=== PATIENT | female | born 1940 | race Caucasian/White ===

== ENCOUNTER 2022-12-19 12:04 | Inpatient (IN) | payer MEDICARE, SELFPAY ==
[2022-12-19] VITALS (39 sets, daily range): BP systolic 70–177; BP diastolic 46–124; PULSE 89–123; RESP 16–24; TEMP 36.2–37.1; O2SAT 55–99
--- NOTE | ~2022-12-19 | XR_ITS ---
Portable chest x-ray Comparison: 12/21/2022 Clinical History: Hypoxia Findings: Small bilateral pleural effusions are present. There is probable mild pulmonary edema josette juliana. Questionable underlying COPD or other chronic interstitial disease. Right IJ line is unchanged. Cardiomediastinal silhouette is stable. Bones and soft tissues are unremarkable. Impression: Mild pulmonary edema with small bilateral pleural effusions. Possible underlying COPD or other chronic interstitial disease. Support line, unchanged. Reviewed, dictated and finalized at location M. Impression: Mild pulmonary edema with small bilateral pleural effusions. Possible underlying COPD or other chronic interstitial disease. Support line, unchanged.
--- NOTE | ~2022-12-19 | US_ITS ---
EXAMINATION:US venous doppler LE BI INDICATION:Elevated d-dimer. TECHNIQUE: Multiple grayscale, color flow and Doppler images of the right and left lower extremity de ep venous systems were obtained and reviewed. COMPARISON:No prior studies for comparison. FINDINGS: The common femoral, superficial femoral and popliteal veins demonstrate normal respiratory variation, augmentation and compressibility. Color flow is also seen within the posterior tibial, pe roneal, greater saphenous and profunda veins. IMPRESSION: 1: No lower extremity deep venous thrombosis. Reviewed, dictated and finalized at location A.
--- NOTE | ~2022-12-19 | US_ITS ---
US renal BI 12/20/2022 09:39 Procedure: Realtime transabdominal ultrasound of the kidneys and bladder. Indication: Acute on chronic kidney disease Comparison: No prior studies for comparison. Findings: Renal echotexture is normal bilaterally without hydronephrosis, contour deforming mass or r enal calculus. The right kidney measures 9.9 cm and left kidney measures 9.3 cm. Bladder is empty li miting evaluation. Impression: 1: Unremarkable renal ultrasound. No stones, masses or hydronephrosis. Reviewed, dictated and finalized at location A. Impression: 1: Unremarkable renal ultrasound. No stones, masses or hydronephrosis.
--- NOTE | ~2022-12-19 | XR_ITS ---
Portable chest x-ray Comparison: 12/22/2022 Clinical History: Hypoxia Findings: Small right pleural effusion is present. There is mild bibasilar pulmonary edema pattern. Possible underlying COPD. Cardiomediastinal silhouette is stable. Bones and soft tissues are unremar kable. Impression: Small right pleural effusion with bibasilar pulmonary edema. Possible underlying COPD. Reviewed, dictated and finalized at location . Impression: Small right pleural effusion with bibasilar pulmonary edema. Possible underlying COPD.
--- NOTE | ~2022-12-19 | XR_ITS ---
Portable chest x-ray Comparison: 12/23/2022 Clinical History: Hypoxia Findings: Right IJ line is unchanged. Probable COPD pattern of the lungs. No definite pleural effusi on. Cardiomediastinal silhouette is stable. Bones and soft tissues are unremarkable. Impression: COPD. Correlate for mild interstitial pulmonary edema. Support line, as above. Reviewed, dictated and finalized at location . Impression: COPD. Correlate for mild interstitial pulmonary edema. Support line, as above.
--- NOTE | ~2022-12-19 | CT_ITS ---
EXAMINATION: CT brain wo con DATE: 12/19/2022 20:53 INDICATION: fall . TECHNIQUE: Computed tomography (CT) of the head was performed without intravenous contrast. The mA wa s adjusted according to patient size. Iterative reconstruction technique was employed. The dose-lengt h product was 605.33 mGy-cm. COMPARISON: None. FINDINGS: No acute intracranial hemorrhage or extra-axial fluid collection. No hydrocephalus, mass, or herniation. No acute ischemic infarct. Unremarkable dural venous sinus attenuation. No acute osseous abnormality. The aerated spaces are clear. Moderate atrophy and moderate chronic white matter change. Atherosclerotic intracranial calcification . Old bilateral basal ganglia and insular lacunar infarcts. Bilateral lens replacements. IMPRESSION: No acute intracranial process. Reviewed, dictated and finalized at location K.
--- NOTE | ~2022-12-19 | US_ITS ---
EXAMINATION: US perc cholecystostomy w imag DATE: 12/21/2022 12:19 INDICATION: Acute cholecystitis. TECHNIQUE: The procedure including the risks, benefits, and alternatives was discussed with the patie nt. Risks discussed included bleeding including bleeding and infection. Oral and written consent were obtained. A timeout was performed to verify the patient's name, date of , and procedure to b e performed. The skin overlying the gallbladder was prepped and draped in usual sterile fashion. Ane sthetic was administered with 1% lidocaine subcutaneously. An 8.5 Fr catheter was inserted into the gallbladder by trocar technique. The metal stiffener and trocar needle were removed, and the pigtail tip was locked. Bile was aspirated and sent for culture. The catheter was stitched to the skin with s melyssa. There were no immediate complications. FINDINGS: Ultrasound images demonstrate the catheter within the gallbladder. 8 mL bile was aspirated. IMPRESSION: 1. Successful ultrasound-guided cholecystostomy tube placement. 2. 8 mL black-brown bile was sent for aerobic and anaerobic cultures. 3. The catheter will be managed by Dr. Cat. A catheter cholangiogram may be performed not less than 48 hours after tube placement if clinically indicated to assess cystic duct patency. If cholecystect consuelo is not eventually performed and the infectious episode has resolved, the tube may be removed over a guidewire, preferably not less than 3 weeks after placement to allow time for a mature catheter tr act to form to prevent bile leakage and peritonitis. Reviewed, dictated and finalized at location A. IMPRESSION: 1. Successful ultrasound-guided cholecystostomy tube placement. 2. 8 mL black-brown bile was sent for aerobic and anaerobic cultures. 3. The catheter will be managed by Dr. Cat. A catheter cholangiogram may be p erformed not less than 48 hours after tube placement if clinically indicated to assess cystic duct patency. If cholecystectomy is not eventually performed and the infectious episode has resolved, the tube may be removed over a guidewire, preferably not less than 3 weeks after placement to allow time for a mature ca theter tract to form to prevent bile leakage and peritonitis.
--- NOTE | ~2022-12-19 | CT_ITS ---
EXAMINATION: CT cervical spine wo con DATE: 12/19/2022 20:53 INDICATION: Fall TECHNIQUE: Computed tomography (CT) of the cervical spine was performed without intravenous contrast. Automated exposure control and iterative reconstruction technique were employed. The dose-length pro duct was 209.68 mGy-cm. COMPARISON: None. FINDINGS: Vertebral Body Alignment: Intact. Craniocervical and atlantoaxial alignment: Moderate degenerative change with pannus. Alignment intact . Osseous structures/fracture: No evidence of a lytic or blastic process in the visualized spine. No e vidence of acute fracture. Cervical soft tissues: The paraspinal soft tissues planes are maintained. Degenerative changes: Degenerative changes, without severe neural foraminal or central canal narrowin g. IMPRESSION: No acute fracture or traumatic malalignment in the cervical spine. Reviewed, dictated and finalized at location K.
--- NOTE | ~2022-12-19 | XR_ITS ---
EXAMINATION: XR chest 1V portable Exam Date/Time: 12/19/2022 19:56 CDT HISTORY: S/p central line Comparison: 12/19/2022. RESULT: Lines, tubes, and devices: Right IJ central venous line terminating at the confluence of the distal internal jugular and brachiocephalic veins. Lungs and pleura: Increased patchy airspace disease in the left upper lung. Stable left lower lung o pacities and costophrenic angle blunting. No pneumothorax. Cardiomediastinal silhouette: Stable. Other: No acute osseous or upper abdominal finding. IMPRESSION: New right IJ central venous line, tip at the confluence of the distal internal jugular and brachyceph alic veins, consider advancing 3 cm. Right upper lung airspace disease may represent atelectasis or aspiration. Reviewed, dictated and finalized at location K. IMPRESSION: New right IJ central venous line, tip at the confluence of the distal internal jugular and brachycephalic veins, consider advancing 3 cm. Right upper lung airspace disease may represent atelectasis or aspiration.
--- NOTE | ~2022-12-19 | CT_ITS ---
EXAMINATION: CT lumbar spine wo con DATE: 12/19/2022 17:09 INDICATION: low back pain after fall . TECHNIQUE: Computed tomography (CT) of the lumbar spine was performed with intravenous contrast. Auto mated exposure control and iterative reconstruction technique were employed. The dose-length product was 708.68 mGy-cm. COMPARISON: None. FINDINGS: 5 nonrib-bearing lumbar-type vertebral bodies. Pedicles intact. Normal vertebral body align ment. Mild height loss at L1, the remaining vertebral body heights are preserved. L1 fracture involvi ng the superior endplate, anterior cortex, and posterior cortex with 2 mm posterior retropulsion. Mul tilevel degenerative disc disease, severe at L3-4 through L5-S1. Multilevel facet arthropathy with in terspinous narrowing. No severe central canal or neural foraminal narrowing. Severe atherosclerotic c alcifications. Distal aortic graft. Diverticulosis. Simple left renal cysts. IMPRESSION: Acute burst fracture of L1, with 2 mm retropulsion. No other acute fracture or traumatic malalignment detected in the lumbar spine. Reviewed, dictated and finalized at location K.
--- NOTE | ~2022-12-19 | XR_ITS ---
EXAMINATION: XR chest 1V portable Exam Date/Time: 12/19/2022 19:38 CDT HISTORY: hypotension, pre line placement Comparison: None. RESULT: Lines, tubes, and devices: Intact sternotomy wires. Lungs and pleura: Peripheral reticular opacities. Calcified right lower lung granuloma. Subsegmental left basilar opacities Cardiomediastinal silhouette: Unremarkable. Other: No acute osseous or upper abdominal finding. Severe vascular calcifications. IMPRESSION: Interstitial edema. Subsegmental left basilar atelectasis/consolidation. Reviewed, dictated and finalized at location K.
--- NOTE | ~2022-12-19 | XR_ITS ---
Portable chest x-ray Comparison: 12/24/2022 Clinical History: Hypoxia Findings: There is mild pulmonary edema pattern with small right pleural effusion. Probable underlyi ng COPD. Cardiomediastinal silhouette is stable. Bones and soft tissues are unremarkable. Impression: Mild pulmonary edema pattern with small right pleural effusion. Underlying COPD. Reviewed, dictated and finalized at [facility]. Impression: Mild pulmonary edema pattern with small right pleural effusion. Underlying COPD.
--- NOTE | ~2022-12-19 | XR_ITS ---
Portable chest x-ray Comparison: 12/19/2022 Clinical History: Hypoxia Findings: Distal tip of right IJ line is in place. There is probable COPD and associated interstitia l prominence. No definite pleural effusions. Cardiomediastinal silhouette is stable. Bones and soft tissues are unremarkable. Impression: Probable COPD. Correlate for mild interstitial pulmonary edema. Support line, as above. Reviewed, dictated and finalized at location . Impression: Probable COPD. Correlate for mild interstitial pulmonary edema. Support line, as above.
--- NOTE | ~2022-12-19 | CT_ITS ---
EXAMINATION: CT chest abdomen pelvis wo con DATE: 12/19/2022 20:52 INDICATION: elevated WBC, lactic and hypotension . TECHNIQUE: Computed tomography (CT) of the chest, abdomen, and pelvis was performed without intraveno us contrast. Automated exposure control and iterative reconstruction technique were employed. The dos e-length product was 631.70 mGy-cm. COMPARISON: CT cervical and lumbar spine, same date FINDINGS: CHEST: Right IJ central venous line terminating in the distal internal jugular vein near the confluence. Thoracic aorta: Moderate ectasia and severe atherosclerotic calcification. Lung parenchyma and airways: Mild peripheral reticulation and interlobular septal thickening. Subsegm ental dependent right upper lobe consolidation. Minimal dependent atelectasis. Thoracic inlet, axillae and chest wall: No thyroid or soft tissue mass. No axillary lymphadenopathy. Mediastinum: Mediastinal lymphadenopathy. Heart and pericardium: Mild cardiomegaly. No pericardial effusion. Coronary artery calcifications: Heavy. Pleura: Trace left pleural fluid. Thoracic bones: No acute osseous finding in the chest. ABDOMEN/PELVIS: Liver: Normal. Biliary/Gallbladder: Distended gallbladder with pericholecystic fluid, wall thickening, and surroundi ng inflammatory change. No bile duct dilation. Pancreas: No mass or duct dilation. Spleen: Granulomatous calcification. Adrenals:No mass. Kidneys: Bilateral simple cysts GI tract: No small or large bowel dilation. Normal appendix. Diverticulosis without diverticulitis. Mesentery/Peritoneum: No ascites, mass, or free air. Retroperitoneum: No mass . Atherosclerotic abdominal aortic and/or arterial calcifications. Aortobife moral graft, graft patency cannot be assessed without contrast. Pelvis: Pelvic organs are within normal limits Soft Tissues: Soft tissues and body wall unremarkable. Abdominopelvic bones: Acute L1 burst fracture. IMPRESSION: Right IJ terminates in the distal internal jugular vein, consider advancement. Subsegmental consolida tion in the dependent right upper lobe, consider aspiration. Mild interstitial pulmonary edema. Trace left pleural effusion. Distended inflamed gallbladder concerning for acute cholecystitis. Mediastina l lymphadenopathy. Acute L1 burst fracture. Reviewed, dictated and finalized at location K. IMPRESSION: Right IJ terminates in the distal internal jugular vein, consider advancement. Subsegmental consolidation in the dependent right upper lobe, consider aspirati on. Mild interstitial pulmonary edema. Trace left pleural effusion. Distended i nflamed gallbladder concerning for acute cholecystitis. Mediastinal lymphadenop athy. Acute L1 burst fracture.
--- NOTE | ~2022-12-19 | US_ITS ---
US abdomen limited INDICATION: Cholecystitis PROCEDURE: Realtime right upper abdominal ultrasound. COMPARISON: CT dated 12/19/2022 FINDINGS: The pancreas is normal without focal mass or pancreatic ductal dilation. Liver echotexture is diffusely increased, consistent with fatty infiltration. Gallbladder is distended with gallbladde r wall thickening and trace pericholecystic fluid. No definite gallstones. There is normal direction al flow in the portal vein. The gallbladder is normal without stones, gallbladder wall thickening or pericholecystic fluid. Comm on bile duct measures 5 mm. Positive sonographic Fernandez's sign. IMPRESSION: 1: Distended gallbladder with gallbladder wall thickening and pericholecystic fluid. Positive sonogra phic Fernandez's sign. This constellation of findings is suspicious for cholecystitis. Reviewed, dictated and finalized at location A. IMPRESSION: 1: Distended gallbladder with gallbladder wall thickening and pericholecystic f luid. Positive sonographic Fernandez's sign. This constellation of findings is brian picious for cholecystitis.
--- NOTE | 2022-12-19 13:39 | PC.NURSE ---
patient's family member very upset with wait times in the ED. Requesting to talk with hospital administration. assembly supervisor and supervisor propellant charge loading made aware of patient visitor requests at this time. assembly supervisor is coming down to ED to talk with patient's family members.
--- NOTE | 2022-12-19 15:14 | ED.FALL ---
HPI - Fall General Chief Complaint: Fall Stated Complaint: fall Time Seen by Provider: 12/19/22 15:02 History of Present Illness HPI Narrative: 82-year-old female presents to the emergency room today for evaluation after having a ground-level fall yesterday. She fell backwards onto her low back. She says that she was on the ground for several hours before her daughter found her. She was seen at an outside hospital yesterday. Her daughter says that she did have a head CT done there that was negative. Patient is reporting severe low back pain that is not improving. She is not able to stand or walk. She has also not been able to urinate all day today. No fever or chills. No abdominal pain. No numbness or tingling. Related Data Allergies Allergy/AdvReac Type Severity Reaction Status Date / Time Sulfa (Sulfonamide Allergy Unknown Verified 04/25/20 08:18 Antibiotics) Review of Systems Review of Systems: CONSTITUTIONAL: Denies fever, chills, or sweats. EYES: Denies visual changes, redness, or discharge. ENT: Denies rhinorrhea, congestion, sore throat, or otalgia. CARDIOVASCULAR: Denies chest pain, palpitations, or edema. RESPIRATORY: Denies cough or dyspnea. GASTROINTESTINAL: Denies abdominal pain, nausea, vomiting, or diarrhea. GENITOURINARY: unable to urinate today SKIN: Denies rash or itching. MUSCULOSKELETAL: severe low back pain NEUROLOGIC: No numbness or tingling, reports weakness to lower extremities, unable to stand or bear weight PSYCHIATRIC: Denies anxiety or depression. [facility] Past Medical History Medical History (Updated 12/19/22 @ 19:07 by Morena Diaz APRN) Chronic pain of left knee Primary osteoarthritis of left knee Family History Family History Father Hypertension Family history of arthritis Social History Social History Smoking status: Former smoker Smoking end date: 08/09/03 Alcohol intake: current Exam Narrative: GENERAL: Well-appearing, well-nourished, and in no acute distress. HEAD: Normocephalic, atraumatic. Eyes: PERRL, EOMI NECK: Supple. No adenopathy or masses. No carotid bruits or JVD CHEST: Clear to auscultation. No respiratory distress. No wheezes rales or rhonchi HEART: Regular rate and rhythm. No murmur heard. Normal peripheral pulses. ABDOMEN: Soft, nontender, nondistended, normal active bowel sounds. EXTREMITIES: limited ROM of lower extremities, good muscle tone but limited ability with flexion/extension BACK: Tenderness over the lower lumbar spine, no swelling or deformity SKIN: Warm, dry, no rash. NEURO: No focal deficits. Alert and oriented x3. PSYCH: Normal mood and affect. Course Course Emergency Course: [address] Morfin, neurosurgery, agrees to consult on patient if admitted to hospitalist admits. 1899 Discussed with hospitalist SHELL PRESS OPERATOR, Millie Sutherland, accepting patient for admission for intractable low back pain due to burst fracture, dehydration, [place] Vital Signs Vital signs: Vital Signs Temperature 37.1 C 12/19/22 12:30 Pulse Rate 89 12/19/22 12:30 Respiratory Rate 17 12/19/22 12:30 Blood Pressure 103/62 12/19/22 12:30 Pulse Oximetry 94 12/19/22 12:30 Oxygen Delivery Room Air 12/19/22 12:30 Temperature 36.2 C L 12/19/22 14:52 Pulse Rate 115 H 12/19/22 14:52 Respiratory Rate 17 12/19/22 12:30 Blood Pressure 107/69 12/19/22 14:52 Pulse Oximetry 94 12/19/22 14:52 Oxygen Delivery Room Air 12/19/22 12:30 MDM - Fall Lab Data 12/19/22 16:32 12/19/22 16:32 Labs: Lab Results 12/19/22 12/19/22 12/19/22 Range/Units 16:32 17:53 18:26 WBC 16.6 H (4.5-10.0) K/mm3 RBC 5.17 (4.2-5.4) M/mm3 Hgb 14.3 (12.0-15.0) g/dL Hct 43.8 (37.0-47.0) % MCV 84.7 (80-100) fl MCH 27.7 (26-34) pg MCHC 32.6 (32-3
[2022-12-19 16:38] LABS: Basophils Absolute Auto 0.1 K/mm3 (0.0-0.1); Basophils Percent Auto 0.4 % (0.2-1.2); Eosinophils Absolute Auto 0.1 K/mm3 (0-0.3); Eosinophils Percent Auto 0.7 % (0-4.4); Hematocrit 43.8 % (37.0-47.0); Hemoglobin 14.3 g/dL (12.0-15.0); Immature Granulocyte Absolute 0.16 K/mm3 (0.00-0.031); Lymphocytes Absolute Auto 2.07 K/mm3 (0.9-3.2); Lymphocytes Percent Auto 12.5 % (18.3-44.2); Mean Corpuscular HGB Conc 32.6 g/dl (32-36); Mean Corpuscular Hemoglobin 27.7 pg (26-34); Mean Corpuscular Volume 84.7 fl (80-100); Mean Platelet Volume 9.5 fl (7.4-10.4); Monocytes Percent Auto 5.8 % (2.6-8.5); Neutrophils Absolute Auto 13.2 K/mm3 (1.3-6.7); Neutrophils Percent Auto 79.6 % (45.5-73.1); Platelet Count Result 251 k/mm3 (150-375); Red Blood Count 5.17 M/mm3 (4.2-5.4); Red Cell Distribution Width 14.9 % (11.5-14.5); White Blood Count 16.6 K/mm3 (4.5-10.0)
[2022-12-19 16:50] LABS: Alanine Aminotransferase 21 U/L (6-35); Albumin Level 4.5 g/dL (3.5-5.1); Alkaline Phosphatase 75 U/L (38-126); Anion Gap 12 mmol/L (8-16); Aspartate Amino Transferase 30 U/L (14-36); Bilirubin,Total 0.8 mg/dL (0.2-1.3); Blood Urea Nitrogen 42 mg/dL (7-17); Calcium 9.2 mg/dL (8.4-10.2); Carbon Dioxide 27 mmol/L (22-30); Chloride 92 mmol/L (98-107); Creatine Kinase 60 U/L (30-135); Estimated Glomerular Filt Rate 24; Glucose 140 mg/dL (65-110); Potassium 3.9 mmol/L (3.4-5.0); Sodium 131 mmol/L (137-145)
[2022-12-19 16:53] LABS: INR 3.1; Partial Thromboplastin Time 43.2 SECONDS (22.3-36.8); Prothrombin Time 34.1 Seconds (11.1-14.7)
[2022-12-19] MEDS: ONDANSETRON INJ 4 MG/2 ML VIAL IV PUSH (16:56)
[2022-12-19] MEDS: MORPHINE SULFATE (*CRX) 2 MG/ML INJ IV PUSH (16:57)
[2022-12-19] MEDS: SODIUM CHLORIDE 0.9% IV 1,000 ML 999 ML IV CONT ×3 (18:20→19:45)
[2022-12-19 18:22] LABS: Appearance Urine Clear (Clear); Bacteria Urine None Seen /hpf; Bilirubin Urine 1+ (Negative); Blood Urine Negative (Negative); Color Urine Dark Yellow (Yellow); Glucose Urine UA Negative (Negative); Hyaline Casts Urine Present /lpf; Ketones Urine Trace mg/dL (Negative); Leukocyte Esterase Ur Trace LEU/UL (Negative); Nitrate Urine Negative (Negative); Non Pathogenic Casts >20; Protein Urine Negative (Negative); Specific Grav Ur 1.023 (1.001-1.035); Squamous Epithelial Cell Urine None seen /hpf (Few); WBC Urine 0-5 /hpf
[2022-12-19 18:24] LABS: Add Urine Microscopic? YES
[2022-12-19 18:45] LABS: Lactic Acid Reflex 2.4 mmol/L (0.7-2.0)
[2022-12-19 19:04] LABS: D Dimer 4.92 ug/mL (<0.48)
[2022-12-19] MEDS: NOREPINEPHRINE 8 MG/D5W 250 ML 8 MG/250 ML BAG 9.38 MG IV CONT (20:05)
[2022-12-19 20:26] LABS: NT Pro B Type Natriuretic Pept 19300 pg/mL (19.9-100)
[2022-12-19 20:40] LABS: Troponin I 0.066 ng/mL (0.000-0.034)
[2022-12-19] MEDS: CEFEPIME 1 GM/NS 50 ML 1 GM/50 ML BAG IVPB (20:54)
--- NOTE | 2022-12-19 21:14 | ECG_ITS ---
Measurements Intervals [place] Rate: 114 P: TX: 0 QRS: 79 QRSD: 91 T: -62 QT: 300 QTc: 414 Interpretive Statements ATRIAL FIBRILLATION WITH RAPID VENTRICULAR RESPONSE VENTRICULAR PREMATURE COMPLEX LOW QRS VOLTAGE IN PRECORDIAL LEADS INCOMPLETE RIGHT BUNDLE BRANCH BLOCK BORDERLINE ST-T WAVE ABNORMALITY- ANTEROAT/INF LEADS ABNORMAL ECG NO PREVIOUS ECG AVAILABLE FOR COMPARISON Electronically Signed On 12-20-2022 8:02:02 CDT by Jeovany Floyd D.O.
[2022-12-19] MEDS: VANCOMYCIN 750 MG/NS 250 ML 750 MG/250 ML BAG 250 MG IVPB (21:30)
[2022-12-19 21:33] LABS: Reflex Lactic Acid Yes or No Add Lactic
[2022-12-19 22:04] LABS: Creatine Kinase 74 U/L (30-135)
[2022-12-19] MEDS: metroNIDAZOLE 500 MG/ISO 100ML 500 MG/100 ML BAG 100 MG IVPB (22:04)
[2022-12-19 22:06] LABS: Lactic Acid 2.1 mmol/L (0.7-2.0)
--- NOTE | 2022-12-19 22:12 | PM.IMHP ---
H&P: HPI History of Present Illness Date/Time: 12/19/22 22:12 Chief Complaint: fall Narrative: this is an 82-year-old female patient who presented to the emergency room with a ground level fall yesterday. The patient fell backwards onto her lower back. The patient was seen at an outside hospital and then was released to home. The patient was found to have a lumbar fracture and according to her daughter Karlee her head CT was negative at the time. The patient has been complaining of lower back pain with no improvement. The patient has not been able a stand or walk. The patient has not been able to urinate all day. Her white count was noted to be 16.6. Neutrophils 79.6 . her D-dimer was 4.92. Sodium is low at 131. Her creatinine is 2.00 with a BUN of 42. Glucose 140. Lactic acid is 2.4 and repeat is 2.1. Her troponin is 0.066 [place] [address]. She is negative for influenza A/B RSV and COVID. Her initial blood pressure was 103/62. The patient was given morphine in the emergency room and her blood pressure dropped down to 84/59. Patient was bolused with IV fluids. Her blood pressure did come up to 99/64. However her blood pressures dropped back down to 78/51. ER physician placed a right IJ and the patient was started on vasopressors. Her blood pressure improved with the vasopressors. chest abdomen pelvis CT was read as a following Right IJ terminates in the distal internal jugular vein, consider advancement. Subsegmental consolidation in the dependent right upper lobe, consider aspiration. Mild interstitial pulmonary edema. Trace left pleural effusion. Distended inflamed gallbladder concerning for acute cholecystitis. Mediastinal lymphadenopathy. Acute L1 burst fracture. neurosurgery has been consulted for the acute L1 burst fracture. The patient was given 2 L of IV fluids, Levophed, cefepime vancomycin. The fine hairer has been consulted and agrees to consultation. Cervical spine CT was read as no acute fracture traumatic malalignment cervical spine. Head CT was read as no acute intracranial process. The patient is on Coumadin and her INR is 3.1. PT is 34.1. The patient is being admitted to inpatient status on the date of service of 12/19/2022. Review of Systems Review of Systems: All systems reviewed & are unremarkable except as noted in HPI and below Constitutional: Constitutional: Reports as per HPI and Reports no additional constitutional complaints Eyes: Eyes: Reports as per HPI and Reports no additional eye complaints ENT: Reports system reviewed and no additional complaints, except as documented and Reports Normal hearing present Cardiovascular: Cardiovascular: Reports no additional cardiovascular complaints Respiratory: Respiratory: Reports no additional respiratory complaints and Reports no additional respiratory complaints Gastrointestinal: Gastrointestinal: Reports as per HPI and Reports no additional gastrointestinal complaints Musculoskeletal: Musculoskeletal: Reports no additional musculoskeletal complaints Integumentary/Breasts: Skin/Breast: Reports system reviewed and no additional complaints, except as docu and Reports as per HPI Neurologic: Reports system reviewed and no additional complaints, except as documented, Reports as per HPI and Reports Normal hearing present Psychiatric: Psychiatric: Reports no additional psychiatric complaints and Reports as per HPI Endocrine: Endocrine: Reports no additional endocrine complaints Hematologic/Lymphatic: Hematologic/Lymphatic: Reports no additional hematologic/lymphatic complaints Allergic/Immunologic: Allergic/Immunologic: Reports no additional allergic/immunologic complaints [facility] Past Medical History Medical History (Updated 12/19/22 @ 23:16 by Millie Scruggs NP) Atrial fibrillation CAD (coronary artery disease) Chronic kidney disease Chronic pain of left knee Congestive heart failure DM2 (diabetes mellitus, type 2) History of CVA (cere
[2022-12-19 22:17] LABS: Alveolar/Arterial O2 Gradient 526.7 mmHg; Fractional Inspired Oxygen 100 %; HCO3 ABG 16.8 mEq/l (22.0-26.0); Oxygen Content ABG 18.8 %vol (16.0-22.0); Oxygen Saturation ABG 98.7 % (95.0-100.0); Oxyhemoglobin 96.8 % THb (90.0-100.0); PCO2 ABG 35.8 mmHg (35.0-45.0); PO2 ABG 150.5 mmHg (80.0-100.0); Total Hemoglobin 13.6 g/dL (12.0-18.0)
[2022-12-19 22:19] LABS: Device NON-REBREATHER MASK; Site Drawn RIGHT BRACHIAL; pH ABG 7.288 (7.350-7.450)
[2022-12-19 22:33] LABS: Influenza A QL RT-PCR Negative (Negative); Influenza B QL RT-PCR Negative (Negative); RSV RNA, RT-PCR Negative (Negative); SARS-CoV-2 RNA PCR Negative (Negative)
[2022-12-19] MEDS: PIPERACILLIN/TAZ 2.25G/NS 50ML 2.25 GM/50 ML BAG IVPB (23:01)
[2022-12-19 23:08] LABS: INR 4.1; Prothrombin Time 43.3 Seconds (11.1-14.7)
[2022-12-19 23:35] LABS: Troponin I 0.151 ng/mL (0.000-0.034)
--- NOTE | 2022-12-19 23:38 | ADMGEN ---
This patient, Terra Cartagena, was admitted to Intensive Care Unit-10. Patient/family oriented to hospital policies and general routines including ID bracelet, bed and alarms, visiting hours, pain management, procedures, bathroom and other care routines, personal items, smoking policy, room service/diet, and visiting hours. Information on how to activate the Rapid Response Team has been discussed. Patient/Family are encouraged to report perceived risks to care and to ask questions if they do not understand what they are told or what they should do.
[2022-12-20] VITALS (30 sets, daily range): BP systolic 64–139; BP diastolic 49–88; PULSE 23–124; RESP 12–102; TEMP 36.6–37.4; O2SAT 74–100; BMI 21.3
[2022-12-20] MEDS: SODIUM BICARBONATE 8.4% 50 MEQ/50 ML SYRINGE IV PUSH (00:03)
[2022-12-20 00:36] LABS: Alanine Aminotransferase 37 U/L (6-35); Albumin Level 3.5 g/dL (3.5-5.1); Alkaline Phosphatase 57 U/L (38-126); Anion Gap 8 mmol/L (8-16); Aspartate Amino Transferase 65 U/L (14-36); Bilirubin,Total 0.6 mg/dL (0.2-1.3); Blood Urea Nitrogen 40 mg/dL (7-17); Calcium 7.5 mg/dL (8.4-10.2); Carbon Dioxide 26 mmol/L (22-30); Chloride 101 mmol/L (98-107); Estimated CRCL calculation 19 ml/min; Estimated Glomerular Filt Rate 29; Glucose 170 mg/dL (65-110); Potassium 3.5 mmol/L (3.4-5.0); Sodium 135 mmol/L (137-145)
[2022-12-20] MEDS: POTASSIUM CHLORIDE 20 MEQ TABLET 40 MEQ PO (01:19)
[2022-12-20] MEDS: SODIUM CHLORIDE 0.9% IV 1,000 ML 100 ML IV CONT (01:19)
[2022-12-20] MEDS: NOREPINEPHRINE 8 MG/D5W 250 ML 8 MG/250 ML BAG 9.38 MG IV CONT (01:30)
[2022-12-20 01:51] LABS: Troponin I 0.366 ng/mL (0.000-0.034)
[2022-12-20] MEDS: LEVALBUTEROL NEB 1.25 MG/3 ML 0.63 MG INHALATION ×4 (02:34→20:11)
[2022-12-20] MEDS: IPRATROPIUM BR 0.02% INH SOLN 0.5 MG/2.5 ML VIAL INHALATION ×4 (02:34→20:11)
[2022-12-20 02:53] LABS: Alveolar/Arterial O2 Gradient 597.8 mmHg; Base Excess ABG -4.2 mEq/l (+/-2.0); Carboxyhemoglobin 0.2 % THb (0-2.0); Fractional Inspired Oxygen 100 %; HCO3 ABG 20.8 mEq/l (22.0-26.0); Methemoglobin ABG 0.2 %THb (0-1.5); Oxygen Content ABG 17.7 %vol (16.0-22.0); Oxygen Saturation ABG 94.9 % (95.0-100.0); Oxyhemoglobin 92.6 % THb (90.0-100.0); PCO2 ABG 38.2 mmHg (35.0-45.0); PO2 FiO2 Ratio Arterial Blood 0.77 %; Total Hemoglobin 13.6 g/dL (12.0-18.0); pH ABG 7.354 (7.350-7.450)
[2022-12-20 02:55] LABS: Device NON-REBREATHER MASK; Site Drawn RIGHT BRACHIAL
[2022-12-20 03:18] LABS: Basophils Absolute Auto 0.1 K/mm3 (0.0-0.1); Basophils Percent Auto 0.3 % (0.2-1.2); Eosinophils Percent Auto 0.1 % (0-4.4); Hematocrit 37.7 % (37.0-47.0); Hemoglobin 12.3 g/dL (12.0-15.0); Immature Granulocyte Absolute 0.22 K/mm3 (0.00-0.031); Immature Granulocyte Percent A 1.4 % (0-0.5); Lymphocytes Absolute Auto 1.02 K/mm3 (0.9-3.2); Lymphocytes Percent Auto 6.6 % (18.3-44.2); Mean Corpuscular HGB Conc 32.6 g/dl (32-36); Mean Corpuscular Hemoglobin 27.9 pg (26-34); Mean Corpuscular Volume 85.5 fl (80-100); Mean Platelet Volume 9.6 fl (7.4-10.4); Monocytes Percent Auto 6.6 % (2.6-8.5); Neutrophils Absolute Auto 13.1 K/mm3 (1.3-6.7); Platelet Count Result 219 k/mm3 (150-375); Red Blood Count 4.41 M/mm3 (4.2-5.4); White Blood Count 15.4 K/mm3 (4.5-10.0)
[2022-12-20 03:31] LABS: Alanine Aminotransferase 34 U/L (6-35); Albumin Level 3.2 g/dL (3.5-5.1); Alkaline Phosphatase 54 U/L (38-126); Anion Gap 10 mmol/L (8-16); Aspartate Amino Transferase 58 U/L (14-36); Bilirubin,Total 0.6 mg/dL (0.2-1.3); Blood Urea Nitrogen 40 mg/dL (7-17); Calcium 7.1 mg/dL (8.4-10.2); Carbon Dioxide 20 mmol/L (22-30); Chloride 102 mmol/L (98-107); Estimated CRCL calculation 19 ml/min; Estimated Glomerular Filt Rate 29; Glucose 146 mg/dL (65-110); INR 4.5; Lactic Acid Reflex 1.5 mmol/L (0.7-2.0); Magnesium 1.2 mg/dL (1.6-2.3); Potassium 3.7 mmol/L (3.4-5.0); Prothrombin Time 46.8 Seconds (11.1-14.7); Sodium 132 mmol/L (137-145)
[2022-12-20 03:36] LABS: Hemoglobin A1C 6.4 % (<5.7)
--- NOTE | 2022-12-20 03:49 | PM.EVENT ---
Event Note Event Note Event Note: 12/19/2022 at 23:30 Nursing staff called as the patient is IJ was looped externally on her neck and she was having a fair amount of bleeding from her IJ site. The patient's labs were reviewed and it was noted the patient's INR on presentation was therapeutic at 3.1 and had become more elevated to 4.1 on repeat evaluation. This is likely the reason for the patient's bleeding from her IJ site. However review of the x-ray from IJ placement suggested that the IJV advanced to 3 cm. On my review aligned does appear to be central but could be advanced. Given that the patient is currently and stable from a respiratory standpoint and was requiring significant oxygen I did not want to further agitate for the patient and cause more distress. A and decided not to advance the line at the moment and address or respiratory concerns. IA state at bedside and continue to monitor the patient. Her extremities were cold she had 3-4 second cap refill. Her pulse ox was low due to her poor perfused extremities. Her pulse ox was placed on her forehead but she was having poor readings there is well. At eventually were able to place a pulse ox clip on the patient's ER with improved monitoring of oxygen saturations between 88-91%. And the patient's oxygen was weaned down to 35% on a Venturi mask. We did try to place patient on nasal cannula but she would not tolerate anything in her nose. The patient's ABG was reviewed and demonstrated significant metabolic acidosis. I did give order for 1 time bicarb push. Repeat BMP was ordered which demonstrated stable serum bicarb. So I held off on starting the patient on a bicarb drip. Instead place patient on normal saline at 100 mL an hour. The patient's blood pressures had stabilized and Levophed had already been discontinued just prior to my evaluation. Repeat ABG was ordered for 1 hour later. Repeat ABG had demonstrated resolution of metabolic acidosis. Patient's PO2 which had been elevated on prior ABG had normalized. Patient did have a Trujillo catheter in place but only had a small amount of urine present. Nursing staff told me that they displaced the catheter less than an hour prior to my evaluation. The patient was already on cefepime and vancomycin for antibiotic coverage for possible acute cholecystitis and possible pneumonia. 40 minute spent in critical care activities. Due to a high probability of clinically significant, life threatening deterioration, the patient required my highest level of preparedness to intervene emergently and I personally spent this critical care time directly and personally managing the patient. This critical care time included obtaining a history; examining the patient; pulse oximetry; ordering and review of studies; arranging urgent treatment with development of a management plan; evaluation of patient's response to treatment; frequent reassessment; and discussions with other providers. It was exclusive of separately billable procedures and treating other patients and teaching time. Please see Assessment and Plan section and the rest of the note for further information on patient assessment and treatment.
[2022-12-20] MEDS: PIPERACILLIN/TAZ 2.25G/NS 50ML 2.25 GM/50 ML BAG IVPB ×4 (05:08→23:21)
[2022-12-20 08:13] LABS: Glucose Point of Care 89 mg/dl (65-105)
--- NOTE | 2022-12-20 08:57 | WPDCNINT ---
Assessment and Plan Assessment and plan (1) Congestive heart failure: Code(s): I50.9 - Heart failure, unspecified Status: Acute Assessment and Plan: [place] [address]. Chest x-ray and CT scan shows interstitial edema. Patient has bibasilar crackles. Patient has mild bilateral edema She has been receiving IV fluids due to hypotension and acute kidney injury. I will hold further IV fluids Check echocardiogram to better assess (2) Atrial fibrillation: Code(s): I48.91 - Unspecified atrial fibrillation Status: Acute Assessment and Plan: Currently in sinus tach Hold Coumadin (3) DM2 (diabetes mellitus, type 2): Code(s): E11.9 - Type 2 diabetes mellitus without complications Status: Acute Assessment and Plan: Sliding scale insulin (4) Cholecystitis: Code(s): K81.9 - Cholecystitis, unspecified Status: Acute Assessment and Plan: CT abdomen shows inflamed gallbladder concerning of acute cholecystitis Patient denies any abdominal pain and is not tender at this time Continue Zosyn General surgery has been consulted May need a gallbladder drain (5) Pneumonia: Code(s): J18.9 - Pneumonia, unspecified organism Status: Acute Assessment and Plan: CT scan suggested aspiration pneumonia patient was started on vancomycin and Zosyn Blood cultures have been ordered Check procalcitonin (6) Burst fracture of lumbar vertebra: Qualifiers: Encounter type: initial encounter Fracture type: closed Qualified Code(s): S32.001A - Stable burst fracture of unspecified lumbar vertebra, initial encounter for closed fracture Code(s): S32.001A - Stable burst fracture of unspecified lumbar vertebra, initial encounter for closed fracture Status: Acute Assessment and Plan: Lumbar spine CT shows Acute burst fracture of L1, with 2 mm retropulsion. No other acute fracture or traumatic malalignment detected in the lumbar spine. Neurosurgery consult Will consult PT OT once hemodynamics improved (7) ENID (acute kidney injury): Code(s): N17.9 - Acute kidney failure, unspecified Status: Acute Assessment and Plan: Likely secondary to hypotension and dehydration compounded by the fact the patient was on hydrochlorothiazide and lisinopril Patient has received 3+ L of IV fluid. Do evidence of congestive heart failure I will hold further IV fluids Maintain mean arterial pressure with Levophed if needed Check urine electrolytes CK level normal Renal ultrasound ordered Monitor urine output electrolytes and creatinine (8) Chronic anticoagulation: Code(s): Z79.01 - assisted (current) use of anticoagulants Status: Acute Assessment and Plan: Patient has supratherapeutic INR. Hold Coumadin. Will give vitamin K as anticipate patient will need further invasive procedure and may need a gallbladder drain (9) Elevated troponin: Code(s): R77.8 - Other specified abnormalities of plasma proteins Status: Acute Assessment and Plan: Patient presented with elevated troponin which is likely multifactorial secondary to sepsis shock acute kidney injury. Patient denies any chest pain. EKG showed AFib with RVR with nonspecific ST-T changes. Patient already is anticoagulated. Echo ordered (10) Shock: Code(s): R57.9 - Shock, unspecified Status: Acute Assessment and Plan: Secondary to sepsis and cardiogenic Continue Levophed titration Hold further IV fluids (11) Sepsis: Code(s): A41.9 - Sepsis, unspecified organism Status: Acute Assessment and Plan: Likely secondary to pneumonia and UTI and possible cholecystitis Blood cultures urine cultures Empiric Zosyn Plan DVT prophylaxis -supratherapeutic on warfarin Stress ulcer prophylaxis -PPI Nutrition -NPO Code Status -discussed in detail with the patient patient requests to be DNR DNI she does not want me
[2022-12-20] MEDS: MAGNESIUM SULF 2 GM/WATER 50ML 2 GM/50 ML BAG IVPB (09:17)
[2022-12-20] MEDS: PHYTONADIONE INJ 10 MG/ML AMP SUB-Q (09:17)
--- NOTE | 2022-12-20 11:10 | PM.IMPN ---
Progress Note: A&P Assessment and Plan (1) Congestive heart failure: Code(s): I50.9 - Heart failure, unspecified Status: Acute Assessment and Plan: [place] [address]. Chest x-ray and CT scan shows interstitial edema. Patient has bibasilar crackles. Patient has mild bilateral edema She has been receiving IV fluids due to hypotension and acute kidney injury. I will hold further IV fluids Check echocardiogram to better assess (2) Atrial fibrillation: Code(s): I48.91 - Unspecified atrial fibrillation Status: Acute Assessment and Plan: Currently in sinus tach Hold Coumadin (3) DM2 (diabetes mellitus, type 2): Code(s): E11.9 - Type 2 diabetes mellitus without complications Status: Acute Assessment and Plan: Sliding scale insulin (4) Cholecystitis: Code(s): K81.9 - Cholecystitis, unspecified Status: Acute Assessment and Plan: CT abdomen shows inflamed gallbladder concerning of acute cholecystitis Patient denies any abdominal pain and is not tender at this time Continue Zosyn General surgery has been consulted May need a gallbladder drain (5) Pneumonia: Code(s): J18.9 - Pneumonia, unspecified organism Status: Acute Assessment and Plan: CT scan suggested aspiration pneumonia patient was started on vancomycin and Zosyn Blood cultures have been ordered Check procalcitonin (6) Burst fracture of lumbar vertebra: Qualifiers: Encounter type: initial encounter Fracture type: closed Qualified Code(s): S32.001A - Stable burst fracture of unspecified lumbar vertebra, initial encounter for closed fracture Code(s): S32.001A - Stable burst fracture of unspecified lumbar vertebra, initial encounter for closed fracture Status: Acute Assessment and Plan: Lumbar spine CT shows Acute burst fracture of L1, with 2 mm retropulsion. No other acute fracture or traumatic malalignment detected in the lumbar spine. Neurosurgery consult Will consult PT OT once hemodynamics improved (7) ENID (acute kidney injury): Code(s): N17.9 - Acute kidney failure, unspecified Status: Acute Assessment and Plan: Likely secondary to hypotension and dehydration compounded by the fact the patient was on hydrochlorothiazide and lisinopril Patient has received 3+ L of IV fluid. 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 Hold Coumadin. Will give vitamin K as anticipate patient will need further invasive procedure and may need a gallbladder drain (9) Elevated troponin: Code(s): R77.8 - Other specified abnormalities of plasma proteins Status: Acute Assessment and Plan: Patient presented with elevated troponin which is likely multifactorial secondary to sepsis shock acute kidney injury. Patient denies any chest pain. EKG showed AFib with RVR with nonspecific ST-T changes. Patient already is anticoagulated. 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 We will continue to follow Subjective Date/time seen: 12/20/22 11:10 Interval history: Patient resting in bed Review of Systems Review of Sys
[2022-12-20 11:11] LABS: Procalcitonin 0.3 ng/mL
--- NOTE | 2022-12-20 11:18 | PM.CNGS ---
Assessment and Plan Assessment and plan (1) Sepsis: Code(s): A41.9 - Sepsis, unspecified organism Status: Acute Assessment and Plan: unknown source, CT suggestive of cholecystitis but exam completely benign, cont broad spectrum abx, cont pressor support (2) Cholecystitis: Code(s): K81.9 - Cholecystitis, unspecified Status: Acute Assessment and Plan: CT reviewed, exam benign, will get US for further evaluation, may need perc cholecystostomy (3) Chronic anticoagulation: Code(s): Z79.01 - [facility] (current) use of anticoagulants Status: Acute Assessment and Plan: hold anticoagulation (4) Acute dehydration: Code(s): E86.0 - Dehydration Status: Acute Assessment and Plan: cont resus, Cr elevated History of Present Illness Consult details Consult date: 12/20/22 Reason for consult: gallstones Requesting physician: Bob Zamora MD Narrative: The patient is an 82-year-old female presenting to the emergency department status post fall with vertebral fracture. Reports that she fell in her kitchen early on Wednesday but did not lose consciousness. Workup, including imaging, was significant for acute vertebral fracture. The patient was noted to be hypotensive in the ED despite fluid resuscitation. She has since been started on pressors for sepsis. The patient only complains of back pain and reports that otherwise she feels normal. Of note, the patient denies any abdominal pain, nausea, bloating. Imaging is significant for what looks to be acute cholecystitis. Review of Systems Constitutional: Constitutional: Reports as per HPI, Denies anorexia, Denies chills, Denies fatigue, Denies fever(s), Reports frequent falls, Denies lethargy, Denies malaise, Denies poor appetite, Denies weakness, Denies weight gain and Denies weight loss Eyes: Eyes: Reports no additional eye complaints ENT: Reports system reviewed and no additional complaints, except as documented Cardiovascular: Cardiovascular: Reports no additional cardiovascular complaints Respiratory: Respiratory: Reports no additional respiratory complaints Gastrointestinal: Gastrointestinal: Reports no additional gastrointestinal complaints Genitourinary: Genitourinary: Reports no additional female genitourinary complaints Musculoskeletal: Musculoskeletal: Reports no additional musculoskeletal complaints Integumentary/Breasts: Skin/Breast: Reports system reviewed and no additional complaints, except as docu Neurologic: Reports system reviewed and no additional complaints, except as documented Psychiatric: Psychiatric: Reports no additional psychiatric complaints Endocrine: Endocrine: Reports no additional endocrine complaints Hematologic/Lymphatic: Hematologic/Lymphatic: Reports no additional hematologic/lymphatic complaints Allergic/Immunologic: Allergic/Immunologic: Reports no additional allergic/immunologic complaints [facility] Past Medical History Medical History (Updated 12/20/22 @ 11:24 by Vivian Cat MD) Atrial fibrillation CAD (coronary artery disease) Cholecystitis Chronic kidney disease Chronic pain of left knee Congestive heart failure DM2 (diabetes mellitus, type 2) History of CVA (cerebrovascular accident) HTN (hypertension) with goal to be determined Hyperlipidemia Primary osteoarthritis of left knee Surgical History Surgical History H/O carotid endarterectomy H/O cataract extraction With lens implant History of coronary artery stent placement S/P CABG x 3 S/P peripheral artery angioplasty with stent placement bilateral leg S/P tonsillectomy and adenoidectomy Family History Family History Father Hypertension Family history of arthritis Son Acute myocardial infarction Social History Social History Social H
[2022-12-20 11:39] LABS: Glucose Point of Care 91 mg/dl (65-105)
--- NOTE | 2022-12-20 13:34 | WPDNEUROSGCN ---
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 Seems she had a fall on Wednesday while making her bed and then spent the night with family. Next day, December 19, her family felt that she was a bit confused as well as had not urinated and so she went to the emergency room. History is according to patient as well as family. Family says that she does have a history of falls. Patient says that she currently has quite a bit of low back pain that gets worse with movement. No new weakness or numbness in the legs or arms. He does say though that her fingers are chronically numb as are her feet. This seems to be more related to her vasculopathy than any myelopathy. Patient has a significant cardiovascular history. She has a history of a CABG as well as iliac artery stents. She used to smoke 3 packs a day 20 years ago since quit. She also has a history of a right carotid endarterectomy. She is on Coumadin as well as Plavix. Patient's admission to this hospital seems to be for several medical issues that includes the osteoporotic compression fracture that I have been consulted for. However she is also in the ICU as she was hypotensive with acute kidney injury and some question of cholecystitis as well. Assessment: Patient seems to have multiple medical problems being addressed on this admission. Of this, she has a L1 osteoporotic fracture with moderate height loss likely related to her recent fall from standing. Plan No surgery needed for this Ambulate as tolerated Recommend lumbo-sacral corset Consider IR or pain management referral (inpatient or outpatient) if pain continues to be poorly tolerated Recommend PCP follow-up, medical management of osteoporosis. According to patient's daughter who is present patient had a bone mineral density scan a few weeks ago that confirmed osteoporosis Patient's anti coagulated and antiplatelet state is a risk for major bleeding event given her history of falls. The balance of risks between a cardiovascular event versus a major bleeding event with falling should be discussed with PCP. Given the severity of her vasculopathy, I do think that keeping on blood thinners is reasonable. No follow-up with me necessary. NSGY signing off. 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 Seems she had a fall on Wednesday while making her bed and then spent the night with family. Next day, December 19, her family felt that she was a bit confused as well as had not urinated and so she went to the emergency room. History is according to patient as well as family. Family says that she does have a history of falls. Patient says that she currently has quite a bit of low back pain that gets worse with movement. No new weakness or numbness in the legs or arms. He does say though that her fingers are chronically numb as are her feet. This seems to be more related to her vasculopathy than any myelopathy. Patient has a significant cardiovascular history. She has a history of a CABG as well as iliac artery stents. She used to smoke 3 packs a day 20 years ago since quit. She also has a history of a right carotid endarterectomy. She is on Coumadin as well as Plavix. Patient's admission to this hospital seems to be for several medical issues that includes the osteoporotic compression
[2022-12-20 14:41] LABS: Anion Gap 8 mmol/L (8-16); Blood Urea Nitrogen 39 mg/dL (7-17); Calcium 7.6 mg/dL (8.4-10.2); Carbon Dioxide 21 mmol/L (22-30); Chloride 104 mmol/L (98-107); Estimated CRCL calculation 20 ml/min; Estimated Glomerular Filt Rate 31; Glucose 108 mg/dL (65-110); Magnesium 1.9 mg/dL (1.6-2.3); Potassium 4.2 mmol/L (3.4-5.0); Sodium 133 mmol/L (137-145)
[2022-12-20] MEDS: CALCIUM GLUC 2,000 MG/NS 100ML 2,000 MG/100 ML BAG 100 MG IVPB (15:10)
[2022-12-20 15:53] LABS: Creatinine Urine 90.2 mg/dL
[2022-12-20 16:02] LABS: Sodium Urine Random 40 meq/L
[2022-12-20 18:12] LABS: Glucose Point of Care 120 mg/dl (65-105)
[2022-12-20 21:18] LABS: Glucose Point of Care 72 mg/dl (65-105)
[2022-12-21] VITALS (29 sets, daily range): BP systolic 107–137; BP diastolic 50–85; PULSE 71–126; RESP 10–22; TEMP 36.9–37.2; O2SAT 87–100
--- NOTE | 2022-12-21 | ECHO_ITS ---
Patient Info Name: Terra Cartagena Age: 82 years : 1940 Gender: Female Ht: 63 in Wt: 120 lbs BSA: 1.56 m2 HR: 110 bpm BP: 111 / 63 mmHg Heart Rhythm: Sinus Rhythm Technical Quality: Fair Exam Date: 12/21/2022 8:41 AM Exam Location: [facility] Patient Status: Inpatient Admit Date: 12/19/2022 Staff Ordering Physician: Millie Scruggs NP Char Belt Operator: Sandra Jj RDCS Attending Provider: Héctor Quispe MD Referring Physician: Kael BREAUX; Exam Type: CA echo doppler color flow Study Info Indications - CAD Complete two-dimensional, color flow and Doppler transthoracic echocardiogram is performed. Summary 1. Complete two-dimensional, color flow and Doppler transthoracic echocardiogram is performed. 2. Left ventricular chamber dimension is normal. 3. Left ventricular systolic function is normal, estimated at 65-70%. 4. There is mildly increased left ventricular wall thickness. 5. The left ventricular diastolic function is abnormal. 6. Right ventricular chamber dimension is severely enlarged. 7. Right ventricular systolic function is reduced. 8. Left atrial chamber dimension is severely enlarged. 9. Right atrial chamber dimension is severely enlarged. 10. The mitral valve has thickened leaflets, calcified annulus and posterior prolapse. 11. There is mild to moderate mitral valve regurgitation. 12. There is mild tricuspid valve regurgitation. 13. Severe pulmonary hypertension, estimated pulmonary arterial systolic pressure is 60 mmHg. Left Ventricle Left ventricular chamber dimension is normal. Left ventricular systolic function is normal, estimated at 65-70%. There is mildly increased left ventricular wall thickness. The left ventricular diastolic function is abnormal. Right Ventricle Right ventricular chamber dimension is severely enlarged. Right ventricular systolic function is reduced. Left Atria Left atrial chamber dimension is severely enlarged. Right Atria Right atrial chamber dimension is severely enlarged. Atrial Septum Intact interatrial septum visualized by color flow imaging. Aortic Valve The aortic valve is trileaflet. There is mild aortic valve sclerosis. There is no aortic valve stenosis. There is trace aortic valve regurgitation. Pulmonic Valve The pulmonic valve is normal. There is no pulmonic valve stenosis. There is trace pulmonic regurgitation. Mitral Valve The mitral valve has thickened leaflets, calcified annulus and posterior prolapse. There is no mitral valve stenosis. There is mild to moderate mitral valve regurgitation. Tricuspid Valve The tricuspid valve leaflets are normal. There is no significant tricuspid valve stenosis. There is mild tricuspid valve regurgitation. Severe pulmonary hypertension, estimated pulmonary arterial systolic pressure is 60 mmHg. Pericardium/Pleural The pericardium appears normal. There is trivial pericardial effusion. Inferior Vena Cava Dilated inferior vena cava with <50% collapse upon inspiration consistent with elevated right atrial pressure, 15 mmHg. Aorta The aortic root size at the sinus of Valsalva is normal. There is mild aortic atherosclerosis. Left Ventricular Outflow Tract Name Value Normal LVOT 2D LVOT Diameter 1.9 cm LVOT Doppler -----
[2022-12-21] MEDS: LEVALBUTEROL NEB 1.25 MG/3 ML 0.63 MG INHALATION ×4 (02:15→19:50)
[2022-12-21] MEDS: IPRATROPIUM BR 0.02% INH SOLN 0.5 MG/2.5 ML VIAL INHALATION ×4 (02:15→19:50)
[2022-12-21] MEDS: PIPERACILLIN/TAZ 2.25G/NS 50ML 2.25 GM/50 ML BAG IVPB ×3 (05:29→18:51)
[2022-12-21 05:36] LABS: Hematocrit 35.2 % (37.0-47.0); Hemoglobin 11.4 g/dL (12.0-15.0); Mean Corpuscular HGB Conc 32.4 g/dl (32-36); Mean Corpuscular Hemoglobin 28.2 pg (26-34); Mean Corpuscular Volume 87.1 fl (80-100); Mean Platelet Volume 9.7 fl (7.4-10.4); Platelet Count Result 158 k/mm3 (150-375); Red Blood Count 4.04 M/mm3 (4.2-5.4); Red Cell Distribution Width 15.1 % (11.5-14.5); White Blood Count 8.1 K/mm3 (4.5-10.0)
[2022-12-21 05:46] LABS: Alanine Aminotransferase 27 U/L (6-35); Albumin Level 3.1 g/dL (3.5-5.1); Alkaline Phosphatase 54 U/L (38-126); Anion Gap 6 mmol/L (8-16); Aspartate Amino Transferase 35 U/L (14-36); Bilirubin,Total 0.5 mg/dL (0.2-1.3); Blood Urea Nitrogen 37 mg/dL (7-17); Calcium 8.4 mg/dL (8.4-10.2); Carbon Dioxide 24 mmol/L (22-30); Chloride 104 mmol/L (98-107); Estimated CRCL calculation 22 ml/min; Estimated Glomerular Filt Rate 33; Glucose 118 mg/dL (65-110); Magnesium 1.7 mg/dL (1.6-2.3); Potassium 3.8 mmol/L (3.4-5.0); Sodium 134 mmol/L (137-145)
[2022-12-21 06:24] LABS: INR 2.9; Prothrombin Time 32.6 Seconds (11.1-14.7)
[2022-12-21 07:28] LABS: Glucose Point of Care 128 mg/dl (65-105)
[2022-12-21] MEDS: oxyCODONE/ACETAMINOPHEN (*CRX) 5-325 MG TABLET 1 TABLET PO ×2 (08:27→13:05)
[2022-12-21] MEDS: PANTOPRAZOLE SODIUM IV 40 MG VIAL IV PUSH (08:28)
--- NOTE | 2022-12-21 08:48 | WPDINTPN ---
Progress Note: A&P Assessment and Plan (1) Congestive heart failure: Code(s): I50.9 - Heart failure, unspecified Status: Acute Assessment [place] Plan: [place] [address]. Chest x-ray and CT scan shows interstitial edema. Patient has bibasilar crackles. Patient has mild bilateral edema She received IV fluids on presentation due to hypotension and acute kidney injury. Continue to hold further IV fluids Check echocardiogram to better assess which is pending (2) Atrial fibrillation: Code(s): I48.91 - Unspecified atrial fibrillation Status: Acute Assessment and Plan: Currently in AFib Add low-dose beta-denis Hold Coumadin (3) DM2 (diabetes mellitus, type 2): Code(s): E11.9 - Type 2 diabetes mellitus without complications Status: Acute Assessment and Plan: Sliding scale insulin (4) Cholecystitis: Code(s): K81.9 - Cholecystitis, unspecified Status: Acute Assessment and Plan: CT abdomen shows inflamed gallbladder concerning of acute cholecystitis Patient denies any abdominal pain and is not tender at this time Continue [facility] General surgery evaluated the patient gallbladder drain placement has been ordered Patient will receive Kcentra to reverse anticoagulation -see below (5) Pneumonia: Code(s): J18.9 - Pneumonia, unspecified organism Status: Acute Assessment and Plan: CT scan suggested aspiration pneumonia continue [facility] Blood cultures have been ordered procalcitonin was low (6) Burst fracture of lumbar vertebra: Qualifiers: Encounter type: initial encounter Fracture type: closed Qualified Code(s): S32.001A - Stable burst fracture of unspecified lumbar vertebra, initial encounter for closed fracture Code(s): S32.001A - Stable burst fracture of unspecified lumbar vertebra, initial encounter for closed fracture Status: Acute Assessment and Plan: Lumbar spine CT shows Acute burst fracture of L1, with 2 mm retropulsion. No other acute fracture or traumatic malalignment detected in the lumbar spine. Neurosurgery evaluated patient and recommended conservative management Will consult PT OT once hemodynamics and hypoxic improved (7) ENID (acute kidney injury): Code(s): N17.9 - Acute kidney failure, unspecified Status: Acute Assessment and Plan: Likely secondary to hypotension and dehydration compounded by the fact the patient was on hydrochlorothiazide and lisinopril Patient has received 3+ L of IV fluid. 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 Coumadin was held. Patient was given vitamin K INR 2.9 today. Patient needs gallbladder drain placement for which INR will be reversed with Kcentra. Patient will not tolerate volume of FFP considering congestive heart failure and patient is already on a 50% Ventimask. She is also DNR DNI hence will will avoid risks of worsening hypoxia with volume overload Postprocedure patient can be restarted on anticoagulation but that she has a good candidate for ongoing anticoagulation as an outpatient considering her age and fall risk is still to be determined (9) Elevated troponin: Code(s): R77.8 - Other specified abnormalities of plasma proteins Status: Acute Assessment and Plan: Patient presented with elevated troponin which is likely multifactorial secondary to sepsis shock acute kidney injury. Patient denies any chest pain. EKG showed AFib with RVR with nonspecific ST-T changes. P
[2022-12-21] MEDS: METOPROLOL TARTRATE 12.5 MG TABLET PO ×2 (09:36→20:02)
[2022-12-21 09:59] LABS: INR 1.4; Prothrombin Time 17.5 Seconds (11.1-14.7)
--- NOTE | 2022-12-21 11:43 | PCFNICU ---
ICU Rounding Note: Pt current nutrition is NPO. Last recorded weight is 61.2 kg. Bowel Motility:Last BM reported 12/18 Labs Reviewed:Glu 118, GFR 33, BUN 37, Na 137, Hgb 11.4 Meds Noted:Protonix, Atrovent, Lopressor Skin: WNL Additional Notes: Patient remains NPO at this time. DNR. Surgery consult. No plans for nutrition today. Following daily in ICU rounds.
[2022-12-21 12:28] LABS: Glucose Point of Care 131 mg/dl (65-105)
[2022-12-21] MEDS: FUROSEMIDE INJ 40 MG/4 ML VIAL IV PUSH (13:01)
--- NOTE | 2022-12-21 14:03 | PM.IMPN ---
Progress Note: A&P Assessment and Plan (1) Congestive heart failure: Code(s): I50.9 - Heart failure, unspecified Status: Acute Assessment and Plan: [place] [address]. Chest x-ray and CT scan shows interstitial edema. Patient has bibasilar crackles. Patient has mild bilateral edema much improved (2) Atrial fibrillation: Code(s): I48.91 - Unspecified atrial fibrillation Status: Acute Assessment and Plan: Currently in sinus tach Hold Coumadin pt had drain placed today (3) DM2 (diabetes mellitus, type 2): Code(s): E11.9 - Type 2 diabetes mellitus without complications Status: Acute Assessment and Plan: Sliding scale insulin (4) Cholecystitis: Code(s): K81.9 - Cholecystitis, unspecified Status: Acute Assessment and Plan: CT abdomen shows inflamed gallbladder concerning of acute cholecystitis Patient denies any abdominal pain and is not tender at this time Continue Zosyn General surgery has been consulted pt had GB drain placed today (5) Pneumonia: Code(s): J18.9 - Pneumonia, unspecified organism Status: Acute Assessment and Plan: CT scan suggested aspiration pneumonia patient was started on Zosyn Blood cultures have been ordered Check procalcitonin (6) Burst fracture of lumbar vertebra: Qualifiers: Encounter type: initial encounter Fracture type: closed Qualified Code(s): S32.001A - Stable burst fracture of unspecified lumbar vertebra, initial encounter for closed fracture Code(s): S32.001A - Stable burst fracture of unspecified lumbar vertebra, initial encounter for closed fracture Status: Acute Assessment and Plan: Lumbar spine CT shows Acute burst fracture of L1, with 2 mm retropulsion. No other acute fracture or traumatic malalignment detected in the lumbar spine. 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 Hold Coumadin. Will give vitamin K as anticipate patient will need further invasive procedure and may need a gallbladder drain (9) Elevated troponin: Code(s): R77.8 - Other specified abnormalities of plasma proteins Status: Acute Assessment and Plan: Patient presented with elevated troponin which is likely multifactorial secondary to sepsis shock acute kidney injury. Patient denies any chest pain. EKG showed AFib with RVR with nonspecific ST-T changes. Patient already is anticoagulated. Echo ordered (10) Shock: Code(s): R57.9 - Shock, unspecified Status: Resolved Assessment and Plan: Secondary to sepsis and cardiogenic Patient doing better bp better off vasopressors Pt had GB drain put in Pt can be transferred to IMU (11) Sepsis: Code(s): A41.9 - Sepsis, unspecified organism Status: Resolved Assessment and Plan: Likely secondary to pneumonia and UTI and possible cholecystitis Blood cultures urine cultures pending Empiric Zosyn Subjective Date/time seen: 12/21/22 14:03 Interval history: Patient doing better bp better off vasopressors Pt had GB drain put in Pt can be transferred to IMU Exam Narrative: General: Pt is alert awake and in no distress. Lungs/Chest: lungs are clear Cardiac: Regular rate and rhythm. Normal S1 S2. No murmurs Circulation: Pedal pulses are intact and symmetrical. Abdomen: Decreased bowel sounds. No significant tenderness on exam. Soft. ND. Extremities: No clubbing, cyanosis, bila
--- NOTE | 2022-12-21 15:31 | PM.CNGS ---
History of Present Illness Consult details Consult date: 12/21/22 Narrative: no acute issues, no abd pain, had perc mahogany today Review of Systems Review of Systems: All systems reviewed & are unremarkable except as noted in HPI and below [facility] Past Medical History Medical History (Updated 12/21/22 @ 14:10 by Nya Salgado MD) Atrial fibrillation CAD (coronary artery disease) Cholecystitis Chronic kidney disease Chronic pain of left knee Congestive heart failure DM2 (diabetes mellitus, type 2) History of CVA (cerebrovascular accident) HTN (hypertension) with goal to be determined Hyperlipidemia Primary osteoarthritis of left knee Surgical History Surgical History H/O carotid endarterectomy H/O cataract extraction With lens implant History of coronary artery stent placement S/P CABG x 3 S/P peripheral artery angioplasty with stent placement bilateral leg S/P tonsillectomy and adenoidectomy Family History Family History Father Hypertension Family history of arthritis Son Acute myocardial infarction Social History Social History Social History: the patient lives home alone and she is . 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 She had 3 children and her son from an [place]. her daughter Marley Almendarez is the durable power criminal defense attorney for healthcare. Code status DNR Smoking packs per day: 3 Smoking cigarettes per day: 60.0 Smoking status: Former smoker Tobacco type: cigarettes Alcohol intake: never Substance use: never Lack of Transportation: No Lack of Food: Never True Current Housing: I Have Housing Concerned About Future Housing: No Difficulty Paying Gas/Electric Bills: No Difficulty Paying for Meds: No Currently Unemployed: No Education: High School Diploma/GED Difficulty w/ Childcare or Family Care: No Spiritual care concerns: No Meds Home Medications and Allergies Home Medications Medication Instructions Recorded Confirmed Type atorvastatin 40 mg tablet 40 mg PO HS 12/19/22 12/20/22 History cilostazol 50 mg tablet 50 mg PO QAM AND QHS 12/19/22 12/20/22 History clopidogrel 75 mg tablet 75 mg PO DAILY 12/19/22 12/20/22 History hydrochlorothiazide 25 mg tablet 25 mg PO DAILY 12/19/22 12/20/22 History isosorbide mononitrate 30 mg 30 mg PO DAILY 12/19/22 12/20/22 History tablet,extended release 24 hr lisinopril 2.5 mg tablet 2.5 mg PO DAILY 12/19/22 12/20/22 History metoprolol succinate 100 mg 100 mg PO DAILY 12/19/22 12/20/22 History tablet,extended release 24 hr omeprazole 40 mg capsule,delayed 40 mg PO DAILY 12/19/22 12/20/22 History release sitagliptin phosphate 50 mg tablet 50 mg PO DAILY 12/19/22 12/20/22 History (Januvia) verapamil 120 mg 24 hr 120 mg PO DAILY 12/19/22 12/20/22 History capsule,extended release warfarin 3 mg tablet 3 mg PO DAILY 12/19/22 12/20/22 History cholecalciferol (vitamin D3) 1,250 1,250 mcg PO WEEKLY 12/20/22 12/20/22 History mcg (50,000 unit) capsule Allergies Allergy/AdvReac Type Severity Reaction Status Date / Time Sulfa (Sulfonamide Allergy Unknown Verified 04/25/20 08:18 Antibiotics) Vital Signs Vital Signs - 24 hr 12/20/22 16:00 12/20/22 16:00 12/20/22 16:00 Temperature 37.3 C Pulse Rate 110 H 105 H Respiratory Rate 13 Blood Pressure 108/56 L Pulse Oximetry 100 100 Oxygen Delivery High Flow Therapy with Na Oxygen Flow Rate 4 Fraction of Inspired Oxygen 12/20/22 18:00 12/20/22 18:00 12/20/22 20:12 Temperature 37.3 C Pulse Rate 100 100 104 H Respiratory Rate 15 16 Blood Pressure 92/64 L Pulse Oximetry 100 Oxygen Delivery Oxygen Flow Rate Fraction of Inspired Oxygen 12/20/22 20:00 12/20/22 20:00 12/20/22 20:00 Temperature 37.4 C Pulse Rate 99 99 Respiratory Rate
--- NOTE | 2022-12-21 15:31 | PM.PNGS ---
Progress Note: A&P Assessment and Plan (1) Cholecystitis: Code(s): K81.9 - Cholecystitis, unspecified Status: Acute Assessment and Plan: s/p perc mahogany, cont abx, ok to start diet (2) Sepsis: Code(s): A41.9 - Sepsis, unspecified organism Status: Resolved Assessment and Plan: wean pressor as chris, cont IV abx Subjective Subjective Date/Time Seen: 12/21/22 15:31 Interval history: no acute issues, had perc mahogany today, no abd pain Review of Systems Review of Systems: All systems reviewed & are unremarkable except as noted in HPI and below Exam Const: General: cooperative, comfortable and ill appearing Resp: Auscultation: clear to auscultation bilaterally Cardio: Rate: regular rate Rhythm: regular rhythm GI: Inspection: normal to inspection and non-distended GI Palp: Yes abdominal tenderness, Yes Soft to palpation, Yes Tenderness to palpation present (GI), No Guarding due to palpation present (GI) and No Rigid due to palpation Other: perc mahogany - bilious drainage Objective Data Vital Signs Vital Signs: Vital Signs - 24 hr 12/20/22 16:00 12/20/22 16:00 12/20/22 16:00 Temperature 37.3 C Pulse Rate 110 H 105 H Respiratory Rate 13 Blood Pressure 108/56 L Pulse Oximetry 100 100 Oxygen Delivery High Flow Therapy with Na Oxygen Flow Rate 4 Fraction of Inspired Oxygen 12/20/22 18:00 12/20/22 18:00 12/20/22 20:12 Temperature 37.3 C Pulse Rate 100 100 104 H Respiratory Rate 15 16 Blood Pressure 92/64 L Pulse Oximetry 100 Oxygen Delivery Oxygen Flow Rate Fraction of Inspired Oxygen 12/20/22 20:00 12/20/22 20:00 12/20/22 20:00 Temperature 37.4 C Pulse Rate 99 99 Respiratory Rate 12 Blood Pressure 113/68 Pulse Oximetry 99 99 Oxygen Delivery Nasal Cannula Oxygen Flow Rate 4 Fraction of Inspired Oxygen 12/20/22 22:00 12/20/22 22:00 12/21/22 00:00 Temperature 37.3 C Pulse Rate 114 H 114 H Respiratory Rate 24 H Blood Pressure 103/50 L Pulse Oximetry 92 95 Oxygen Delivery Nasal Cannula Oxygen Flow Rate 3 Fraction of Inspired Oxygen 12/21/22 00:41 12/21/22 00:00 12/21/22 00:00 Temperature 37.2 C Pulse Rate 109 H 109 H Respiratory Rate 17 Blood Pressure 108/50 L Pulse Oximetry 98 95 Oxygen Delivery Venturi Mask Oxygen Flow Rate 12 Fraction of Inspired Oxygen 40 12/21/22 02:00 12/21/22 02:00 12/21/22 01:52 Temperature 37.2 C Pulse Rate 110 H 110 H Respiratory Rate 19 Blood Pressure 126/67 Pulse Oximetry 94 95 Oxygen Delivery Venturi Mask Oxygen Flow Rate 15 Fraction of Inspired Oxygen 50 12/21/22 02:55 12/21/22 02:15 12/21/22 04:00 Temperature Pulse Rate 71 113 H Respiratory Rate 15 Blood Pressure Pulse Oximetry 97 Oxygen Delivery Non-Rebreather Mask Oxygen Flow Rate 10 Fraction of Inspired Oxygen 12/21/22 04:00 12/21/22 04:00 12/21/22 06:00 Temperature 37.2 C Pulse Rate 113 H 110 H Respiratory Rate 16 Blood Pressure 137/75 Pulse Oximetry 99 99 Oxygen Delivery Non-Rebreather Mask Oxygen Flow Rate 10 Fraction of Inspired Oxygen 12/21/22 06:00 12/21/22 06:02 12/21/22 07:34 Temperature 37.1 C 36.9 C Pulse Rate 110 H 105 H Respiratory Rate 18 19 Blood Pressure 111/63 127/85 Pulse Oximetry 87 L 92 95 Oxygen Delivery Venturi Mask Oxygen Flow Rate 15 Fraction of Inspired Oxygen 50 12/21/22 07:51 12/21/22 07:51 12/21/22 08:11 Temperature Pulse Rate 113 H 113 H 114 H Respiratory Rate 20 20 20 Blood Pressure Pulse Oximetry 97 Oxygen Delivery Venturi Mask Oxygen Flow Rate 15 Fraction of Inspired Oxygen 50 12/21/22 08:00 12/21/22 08:00 12/21/22 09:36 Temperature Pulse Rate 95 126 H Respiratory Rate Blood Pressure Pulse Oximetry 97 Oxygen Delivery High Flow Nasal Cannula Oxygen Flow Rate 8 Fraction of Inspired Oxygen 12/21/22 10:
[2022-12-21 16:22] LABS: Glucose Point of Care 143 mg/dl (65-105)
[2022-12-21 20:00] LABS: Glucose Point of Care 187 mg/dl (65-105)
[2022-12-22] VITALS (27 sets, daily range): BP systolic 100–134; BP diastolic 65–122; PULSE 91–133; RESP 12–23; TEMP 36.3–37.7; O2SAT 87–100
[2022-12-22] MEDS: PIPERACILLIN/TAZ 2.25G/NS 50ML 2.25 GM/50 ML BAG IVPB ×5 (00:07→23:07)
[2022-12-22] MEDS: LEVALBUTEROL NEB 1.25 MG/3 ML 0.63 MG INHALATION ×4 (01:28→20:26)
[2022-12-22] MEDS: IPRATROPIUM BR 0.02% INH SOLN 0.5 MG/2.5 ML VIAL INHALATION ×4 (01:28→20:26)
[2022-12-22 06:32] LABS: Hematocrit 35.7 % (37.0-47.0); Hemoglobin 11.5 g/dL (12.0-15.0); Mean Corpuscular HGB Conc 32.2 g/dl (32-36); Mean Corpuscular Volume 86.9 fl (80-100); Mean Platelet Volume 9.8 fl (7.4-10.4); Platelet Count Result 156 k/mm3 (150-375); Red Blood Count 4.11 M/mm3 (4.2-5.4); Red Cell Distribution Width 15.1 % (11.5-14.5); White Blood Count 8.2 K/mm3 (4.5-10.0)
[2022-12-22] MEDS: oxyCODONE/ACETAMINOPHEN (*CRX) 5-325 MG TABLET 1 TABLET PO (06:38)
[2022-12-22 06:43] LABS: INR 1.3; Prothrombin Time 16.5 Seconds (11.1-14.7)
[2022-12-22 06:48] LABS: Alanine Aminotransferase 23 U/L (6-35); Albumin Level 3.1 g/dL (3.5-5.1); Alkaline Phosphatase 54 U/L (38-126); Anion Gap 5 mmol/L (8-16); Aspartate Amino Transferase 26 U/L (14-36); Bilirubin,Total 0.8 mg/dL (0.2-1.3); Blood Urea Nitrogen 29 mg/dL (7-17); Calcium 8.2 mg/dL (8.4-10.2); Carbon Dioxide 30 mmol/L (22-30); Chloride 99 mmol/L (98-107); Estimated CRCL calculation 27 ml/min; Estimated Glomerular Filt Rate 43; Glucose 100 mg/dL (65-110); Magnesium 1.5 mg/dL (1.6-2.3); Potassium 3.3 mmol/L (3.4-5.0); Sodium 134 mmol/L (137-145)
[2022-12-22] MEDS: METOPROLOL TARTRATE 12.5 MG TABLET PO (07:47)
[2022-12-22] MEDS: PANTOPRAZOLE SODIUM IV 40 MG VIAL IV PUSH (07:47)
[2022-12-22 08:12] LABS: Glucose Point of Care 103 mg/dl (65-105)
--- NOTE | 2022-12-22 08:58 | P.CDI_ITS ---
CDI Query Clarification Request Documented history of CHF. CHF noted in the assessment and plan. Elevated BNP on 12/19/22 lab work. Chest Xray noted interstitial edema. Documentation notes bibasilar crackles and bilateral edema. Please specify type and acuity of heart failure if known. * Acute * Chronic * Acute on Chronic * Unknown * Systolic * Diastolic * Combined Systolic and Diastolic * Unknown <Sherrell Diaz RN - Last Filed: 12/22/22 09:03> Clarified Diagnosis Clarified Diagnosis: acute on chronic systolic chf <Nya Salgado MD - Last Filed: 12/22/22 17:33>
--- NOTE | 2022-12-22 10:51 | PCPTNOTE ---
Attempted PT evaluation, pt's brace not present. RN aware. Will follow.
[2022-12-22] MEDS: METOPROLOL SUCCINATE EXT REL 100 MG TABCR PO (10:56)
[2022-12-22] MEDS: ERGOCALCIFEROL 50,000 UNITS CAPSULE 50000 UNITS PO (10:56)
[2022-12-22 11:02] LABS: Glucose Point of Care 139 mg/dl (65-105)
--- NOTE | 2022-12-22 11:07 | PM.PNGS ---
Progress Note: A&P Assessment and Plan (1) Cholecystitis: Code(s): K81.9 - Cholecystitis, unspecified Status: Acute Assessment and Plan: cont drain and abx, off pressors, exam benign, cont low fat diet Subjective Subjective Date/Time Seen: 12/22/22 11:07 Interval history: no acute issues, no abd pain, chris low fat diet Review of Systems Review of Systems: All systems reviewed & are unremarkable except as noted in HPI and below Exam Const: General: cooperative, comfortable and no acute distress Resp: Auscultation: diminished lung sounds Cardio: Rate: regular rate Rhythm: regular rhythm GI: Inspection: normal to inspection and non-distended GI Palp: No abdominal tenderness, Yes Soft to palpation, No Tenderness to palpation present (GI) and No Guarding due to palpation present (GI) Other: mahogany tube - bilious drainage Objective Data Vital Signs Vital Signs: Vital Signs - 24 hr 12/21/22 11:46 12/21/22 13:16 12/21/22 13:29 Temperature 37.0 C Pulse Rate 112 H 104 H 106 H Respiratory Rate 18 21 H 22 H Blood Pressure 107/54 L Pulse Oximetry 89 L Oxygen Delivery Oxygen Flow Rate 12/21/22 12:00 12/21/22 12:00 12/21/22 14:00 Temperature Pulse Rate 114 H 111 H Respiratory Rate Blood Pressure Pulse Oximetry 93 Oxygen Delivery High Flow Nasal Cannula Oxygen Flow Rate 6 12/21/22 14:00 12/21/22 16:00 12/21/22 16:00 Temperature Pulse Rate 112 H 101 H Respiratory Rate 15 Blood Pressure 127/71 Pulse Oximetry 96 97 Oxygen Delivery High Flow Nasal Cannula Oxygen Flow Rate 4 12/21/22 16:00 12/21/22 18:00 12/21/22 19:50 Temperature Pulse Rate 107 H 110 H Respiratory Rate 14 Blood Pressure 122/76 Pulse Oximetry 96 100 Oxygen Delivery High Flow Nasal Cannula Oxygen Flow Rate 3 12/21/22 19:50 12/21/22 20:02 12/21/22 20:05 Temperature Pulse Rate 100 100 101 H Respiratory Rate 11 L 10 L Blood Pressure Pulse Oximetry Oxygen Delivery Oxygen Flow Rate 12/21/22 20:00 12/21/22 20:19 12/21/22 20:00 Temperature Pulse Rate 109 H Respiratory Rate Blood Pressure Pulse Oximetry 100 93 Oxygen Delivery High Flow Nasal Cannula High Flow Nasal Cannula Oxygen Flow Rate 3 4 12/21/22 20:00 12/21/22 22:00 12/22/22 01:29 Temperature 37.1 C Pulse Rate 109 H 85 97 Respiratory Rate 15 13 Blood Pressure 118/71 Pulse Oximetry 94 Oxygen Delivery Oxygen Flow Rate 12/22/22 01:43 12/22/22 00:00 12/22/22 00:00 Temperature Pulse Rate 98 102 H Respiratory Rate 12 Blood Pressure Pulse Oximetry 95 Oxygen Delivery High Flow Nasal Cannula Oxygen Flow Rate 4 12/22/22 00:00 12/22/22 02:00 12/22/22 04:00 Temperature 37.2 C Pulse Rate 102 H 96 Respiratory Rate 15 Blood Pressure 130/81 Pulse Oximetry 95 99 Oxygen Delivery High Flow Nasal Cannula Oxygen Flow Rate 4 12/22/22 04:00 12/22/22 04:00 12/22/22 06:00 Temperature 36.8 C Pulse Rate 91 91 114 H Respiratory Rate 14 Blood Pressure 111/70 Pulse Oximetry 99 Oxygen Delivery Oxygen Flow Rate 12/22/22 06:35 12/22/22 07:47 12/22/22 08:13 Temperature Pulse Rate 105 H 130 H Respiratory Rate 20 Blood Pressure 122/69 Pulse Oximetry Oxygen Delivery Oxygen Flow Rate 12/22/22 08:14 12/22/22 08:00 12/22/22 08:00 Temperature 37.3 C Pulse Rate 113 H 113 H Respiratory Rate 23 H Blood Pressure 134/122 H Pulse Oximetry 90 100 Oxygen Delivery High Flow Nasal Cannula Oxygen Flow Rate 6 12/22/22 08:32 12/22/22 08:49 12/22/22 10:00 Temperature Pulse Rate 133 H 114 H Respiratory Rate 18 Blood Pressure Pulse Oximetry 94 Oxygen Delivery High Flow Nasal Cannula Oxygen Flow Rate 6 12/22/22 08:00 12/22/22 10:56 Temperature Pulse Rate 113 H 109 H Respiratory Rate 23 H Blood Pressure Pulse Oximetry 100 Oxygen De
[2022-12-22] MEDS: MORPHINE SULFATE (*CRX) 2 MG/ML INJ IV PUSH ×2 (13:00→18:15)
--- NOTE | 2022-12-22 13:06 | PC.NURSE ---
This patient, Terra Cartagena, was transferred to [facility] on 12/22/22 at 1306. Personal belongings sent with patient. Report given to Marbella Stone Appropriate documentation sent with patient.
--- NOTE | 2022-12-22 13:32 | PC.NURSE ---
This patient, Terra Cartagena, was received from ICU-10 on 12/22/22 at 1322. Patient/family oriented to unit policies and routines
--- NOTE | 2022-12-22 14:57 | PM.IMPN ---
Progress Note: A&P Assessment and Plan (1) Congestive heart failure: Code(s): I50.9 - Heart failure, unspecified Status: Acute Assessment and Plan: [place] [address]. Chest x-ray and CT scan shows interstitial edema. Patient has bibasilar crackles. Patient has mild bilateral edema much improved Rpt BMP. Rpt BNP (2) Atrial fibrillation: Code(s): I48.91 - Unspecified atrial fibrillation Status: Acute Assessment and Plan: Currently in sinus rhythm Restart coumadin (3) DM2 (diabetes mellitus, type 2): Code(s): E11.9 - Type 2 diabetes mellitus without complications Status: Acute Assessment and Plan: Sliding scale insulin accuchecks (4) Cholecystitis: Code(s): K81.9 - Cholecystitis, unspecified Status: Acute Assessment and Plan: CT abdomen shows inflamed gallbladder concerning of acute cholecystitis Patient denies any abdominal pain and is not tender at this time Continue Zosyn Pt has a GB drain in situ Watch cbc/ bmp (5) Pneumonia: Code(s): J18.9 - Pneumonia, unspecified organism Status: Acute Assessment and Plan: CT scan suggested aspiration pneumonia patient was started on Zosyn Blood cultures have been ordered Check procalcitonin (6) Burst fracture of lumbar vertebra: Qualifiers: Encounter type: initial encounter Fracture type: closed Qualified Code(s): S32.001A - Stable burst fracture of unspecified lumbar vertebra, initial encounter for closed fracture Code(s): S32.001A - Stable burst fracture of unspecified lumbar vertebra, initial encounter for closed fracture Status: Acute Assessment and Plan: Lumbar spine CT shows Acute burst fracture of L1, with 2 mm retropulsion. No other acute fracture or traumatic malalignment detected in the lumbar spine. 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 Patient denies any chest pain. EKG showed AFib with RVR with nonspecific ST-T changes. Patient already is anticoagulated. Echo ordered (10) Shock: Code(s): R57.9 - Shock, unspecified Status: Resolved Assessment and Plan: bp is better now Pt had GB drain put in Pt can be transferred to IMU (11) Sepsis: Code(s): A41.9 - Sepsis, unspecified organism Status: Resolved Assessment and Plan: Likely secondary to pneumonia and UTI and possible cholecystitis Blood cultures urine cultures wound cultures pending Empiric Zosyn Subjective Date/time seen: 12/22/22 14:57 Interval history: Pt can be transferred to imu status GB drain inserted Pt is doing better Review of Systems Review of Systems: Pt having low grade fevers and feels tired otherwise doing ok Exam Const: General: cooperative, comfortable and no acute distress Resp: Auscultation: diminished lung sounds Cardio: Rate: regular rate Rhythm: regular rhythm GI: Inspection: normal to inspection and non-distended GI Palp: No abdominal tenderness, Yes Soft to palpation, No Tenderness to palpation present (GI) and No Guarding due to palpation present (GI) Other: pt has GB drain in situ Objective Data Vital Signs Vital Sig
[2022-12-22] MEDS: CENTRAL LINE FLUSH 10 ML IV PUSH ×3 (15:05→20:40)
[2022-12-22] MEDS: cilostazoL 50 MG TABLET PO (16:12)
[2022-12-22 16:24] LABS: Glucose Point of Care 161 mg/dl (65-105)
[2022-12-22] MEDS: POTASSIUM CHLORIDE 20 MEQ PACKET (FOR LIQUID) PO (18:15)
[2022-12-22] MEDS: WARFARIN (*PBKC) 3 MG TABLET PO (18:16)
--- NOTE | 2022-12-22 19:56 | PC.NURSE ---
Called [facility] [employer] at [phone] in regards to back brace. Spoke with June who reports Ayana will bring brace to hospital tomorrow afternoon. Call back number and pts information provided.
[2022-12-22] MEDS: ATORVASTATIN 40 MG TABLET PO (20:39)
[2022-12-22 20:56] LABS: Glucose Point of Care 130 mg/dl (65-105)
--- NOTE | 2022-12-22 21:54 | ECG_ITS ---
Measurements Intervals [place] Rate: 128 P: OR: 0 QRS: 73 QRSD: 88 T: -34 QT: 274 QTc: 400 Interpretive Statements ATRIAL FIBRILLATION WITH RAPID VENTRICULAR RESPONSE VENTRICULAR PREMATURE COMPLEXES LOW QRS VOLTAGE IN PRECORDIAL LEADS NONSPECIFIC ST & T-WAVE ABNORMALITY- ANTEROLAT/INF LEADS BASELINE ARTIFACT- I, II, AVR, V1 ABNORMAL ECG COMPARED TO ECG 12/19/2022 23:18:05 NO SIGNIFICANT CHANGES Electronically Signed On 12-23-2022 6:44:45 CDT by Jeovany Floyd D.O.
[2022-12-22] MEDS: KCL 40 MEQ/WATER 100 ML 100 ML 25 ML IVPB (23:06)
[2022-12-22] MEDS: MAGNESIUM SULF 4 GM/WATER100ML 4 GM/100 ML BAG IVPB (23:07)
[2022-12-22] MEDS: METOPROLOL TARTRATE INJ 5 MG/5 ML VIAL IV PUSH (23:09)
[2022-12-23] VITALS (26 sets, daily range): BP systolic 113–156; BP diastolic 55–85; PULSE 86–134; RESP 16–20; TEMP 36.4–37.1; O2SAT 85–100
[2022-12-23] MEDS: LEVALBUTEROL NEB 1.25 MG/3 ML 0.63 MG INHALATION ×4 (02:39→21:31)
[2022-12-23] MEDS: IPRATROPIUM BR 0.02% INH SOLN 0.5 MG/2.5 ML VIAL INHALATION ×4 (02:41→21:32)
[2022-12-23 04:38] LABS: Hematocrit 35.2 % (37.0-47.0); Hemoglobin 11.4 g/dL (12.0-15.0); Mean Corpuscular HGB Conc 32.4 g/dl (32-36); Mean Corpuscular Hemoglobin 28.1 pg (26-34); Mean Corpuscular Volume 86.9 fl (80-100); Mean Platelet Volume 9.4 fl (7.4-10.4); Platelet Count Result 173 k/mm3 (150-375); Red Blood Count 4.05 M/mm3 (4.2-5.4); Red Cell Distribution Width 15.4 % (11.5-14.5); White Blood Count 8.2 K/mm3 (4.5-10.0)
[2022-12-23 04:48] LABS: Alanine Aminotransferase 21 U/L (6-35); Albumin Level 3.1 g/dL (3.5-5.1); Alkaline Phosphatase 56 U/L (38-126); Anion Gap 3 mmol/L (8-16); Aspartate Amino Transferase 21 U/L (14-36); Bilirubin,Total 0.7 mg/dL (0.2-1.3); Blood Urea Nitrogen 21 mg/dL (7-17); Calcium 8.3 mg/dL (8.4-10.2); Carbon Dioxide 31 mmol/L (22-30); Chloride 102 mmol/L (98-107); Estimated CRCL calculation 32 ml/min; Estimated Glomerular Filt Rate 53; Glucose 122 mg/dL (65-110); Magnesium 3.2 mg/dL (1.6-2.3); Potassium 4.4 mmol/L (3.4-5.0); Sodium 136 mmol/L (137-145)
[2022-12-23 04:49] LABS: INR 1.2; Prothrombin Time 16.4 Seconds (11.1-14.7)
[2022-12-23] MEDS: PIPERACILLIN/TAZ 2.25G/NS 50ML 2.25 GM/50 ML BAG IVPB ×4 (05:33→23:39)
[2022-12-23] MEDS: cilostazoL 50 MG TABLET PO ×2 (05:34→18:33)
[2022-12-23] MEDS: CENTRAL LINE FLUSH 10 ML IV PUSH ×4 (05:34→21:09)
[2022-12-23 07:42] LABS: Glucose Point of Care 117 mg/dl (65-105)
[2022-12-23] MEDS: POTASSIUM CHLORIDE 20 MEQ PACKET (FOR LIQUID) PO ×2 (10:38→18:33)
--- NOTE | 2022-12-23 10:38 | PM.PNGS ---
Progress Note: A&P Assessment and Plan (1) Cholecystitis: Code(s): K81.9 - Cholecystitis, unspecified Status: Acute Assessment and Plan: S/p perc cholecystostomy tube on 12/21, continue to monitor. Cx pending. Transferred to IMU. Abdominal exam benign. Continue IV antibiotics and low fat diet, which she is tolerating well. Plan I have discussed the patient's case and plan of care with Dr. Cat. Subjective Subjective Date/Time Seen: 12/23/22 09:38 Patient reports: no new complaints, tolerating a regular diet (low fat) and afebrile Interval history: Patient seen this morning eating her breakfast. Denies abdominal pain, nausea, or vomiting. Tolerating low fat diet. Cholecystostomy tube functioning well. No acute events overnight. Review of Systems Review of Systems: ROS unchanged Exam Const: General: comfortable and no acute distress Orientation/consciousness: patient oriented x3 GI: Inspection: non-distended GI Palp: Yes Soft to palpation, No Tenderness to palpation present (GI) and No Guarding due to palpation present (GI) Other: Cholecystostomy tube with bilious drainage, functioning well, gauze dressing dry and intact. Objective Data Vital Signs Vital Signs: Vital Signs - 24 hr 12/22/22 10:56 12/22/22 12:00 12/22/22 12:00 Temperature 99.8 F H Pulse Rate 109 H 119 H 133 H Respiratory Rate 19 Blood Pressure 100/65 Pulse Oximetry 100 Oxygen Delivery Oxygen Flow Rate Fraction of Inspired Oxygen 12/22/22 15:06 12/22/22 15:22 12/22/22 14:00 Temperature Pulse Rate 108 H 116 H 117 H Respiratory Rate 18 18 Blood Pressure Pulse Oximetry Oxygen Delivery Oxygen Flow Rate Fraction of Inspired Oxygen 12/22/22 16:00 12/22/22 16:00 12/22/22 18:00 Temperature 97.6 F Pulse Rate 120 H 119 H 122 H Respiratory Rate 20 Blood Pressure 115/70 Pulse Oximetry 92 Oxygen Delivery Oxygen Flow Rate Fraction of Inspired Oxygen 12/22/22 20:28 12/22/22 20:28 12/22/22 20:00 Temperature Pulse Rate 109 H 119 H Respiratory Rate 18 19 Blood Pressure Pulse Oximetry 87 L 95 Oxygen Delivery Nasal Cannula Nasal Cannula Oxygen Flow Rate 2 3 Fraction of Inspired Oxygen 50 12/22/22 20:00 12/22/22 20:00 12/22/22 22:00 Temperature 98.3 F Pulse Rate 132 H 128 H 123 H Respiratory Rate 20 Blood Pressure 116/75 Pulse Oximetry 90 Oxygen Delivery Oxygen Flow Rate Fraction of Inspired Oxygen 12/22/22 23:09 12/22/22 23:42 12/23/22 00:00 Temperature 97.3 F L Pulse Rate 127 H 110 H 86 Respiratory Rate 18 Blood Pressure 112/65 Pulse Oximetry 93 Oxygen Delivery Oxygen Flow Rate Fraction of Inspired Oxygen 12/23/22 00:00 12/23/22 02:00 12/22/22 20:42 Temperature Pulse Rate 86 98 105 H Respiratory Rate 18 18 Blood Pressure Pulse Oximetry 93 Oxygen Delivery Nasal Cannula Oxygen Flow Rate 4 Fraction of Inspired Oxygen 50 12/23/22 02:41 12/23/22 04:00 12/23/22 04:00 Temperature Pulse Rate 111 H 111 H 114 H Respiratory Rate 18 18 Blood Pressure Pulse Oximetry 93 Oxygen Delivery Nasal Cannula Oxygen Flow Rate 4 Fraction of Inspired Oxygen 50 12/23/22 04:00 12/23/22 02:55 12/23/22 06:00 Temperature 97.6 F Pulse Rate 120 H 104 H 104 H Respiratory Rate 20 18 Blood Pressure 125/75 Pulse Oximetry 97 Oxygen Delivery Oxygen Flow Rate Fraction of Inspired Oxygen 12/23/22 06:00 12/23/22 07:45 12/23/22 08:30 Temperature 98.5 F Pulse Rate 105 H 101 H 112 H Respiratory Rate 18 18 Blood Pressure 146/85 H Pulse Oximetry 95 Oxygen Delivery Oxygen Flow Rate Fraction of Inspired Oxygen 12/23/22 08:34 12/23/22 08:42 Temperature Pulse Rate 108 H Respiratory Rate 16 Blood Pressure Pulse Oximetry 92 Oxygen Delivery Nasal Cannula Oxygen Flow Rate 3 Fraction of Inspired Oxygen Intake/Output Int
[2022-12-23] MEDS: METOPROLOL SUCCINATE EXT REL 100 MG TABCR PO (10:39)
[2022-12-23] MEDS: PANTOPRAZOLE 40 MG TABLET PO (10:39)
[2022-12-23] MEDS: CLOPIDOGREL BISULFATE 75 MG TABLET PO (10:40)
[2022-12-23] MEDS: VERAPAMIL HCL ER 120 MG TABLET PO (10:40)
[2022-12-23] MEDS: hydroCHLOROthiazide 25 MG TABLET PO (10:40)
[2022-12-23] MEDS: lisinopriL 2.5 MG TABLET PO (10:40)
[2022-12-23] MEDS: ISOSORBIDE MONONITRATE 30 MG TAB.ER.24H PO (10:40)
[2022-12-23 11:58] LABS: Glucose Point of Care 132 mg/dl (65-105)
[2022-12-23] MEDS: oxyCODONE/ACETAMINOPHEN (*CRX) 5-325 MG TABLET 1 TABLET PO (12:51)
--- NOTE | 2022-12-23 13:26 | PCCCNOTE ---
On 12/23/22, the student, [Kasey Small], provided care and completed [facility] documentation on this patient. I have reviewed the student's documentation and agree with the findings.
--- NOTE | 2022-12-23 15:23 | PM.IMPN ---
Progress Note: A&P Assessment and Plan (1) Congestive heart failure: Code(s): I50.9 - Heart failure, unspecified Status: Acute Assessment and Plan: [place] [address]. Chest x-ray and CT scan shows interstitial edema. Patient has bibasilar crackles. Patient has mild bilateral edema Chest x-ray reviewed. Monitor (2) Atrial fibrillation: Code(s): I48.91 - Unspecified atrial fibrillation Status: Acute Assessment and Plan: Currently in sinus rhythm Restart coumadin INR still subtherapeutic Patient back into AFib with RVR received IV metoprolol 12/22. On metoprolol succinate 100 mg daily Will increase metoprolol to 150 mg daily. Give extra does metoprolol 50 mg today (3) DM2 (diabetes mellitus, type 2): Code(s): E11.9 - Type 2 diabetes mellitus without complications Status: Acute Assessment and Plan: Sliding scale insulin accuchecks (4) Cholecystitis: Code(s): K81.9 - Cholecystitis, unspecified Status: Acute Assessment and Plan: CT abdomen shows inflamed gallbladder concerning of acute cholecystitis Patient denies any abdominal pain and is not tender at this time Continue Zosyn Pt has a GB drain in situ (5) Pneumonia: Code(s): J18.9 - Pneumonia, unspecified organism Status: Acute Assessment and Plan: CT scan suggested aspiration pneumonia patient was started on Zosyn Blood cultures have been ordered (6) Burst fracture of lumbar vertebra: Qualifiers: Encounter type: initial encounter Fracture type: closed Qualified Code(s): S32.001A - Stable burst fracture of unspecified lumbar vertebra, initial encounter for closed fracture Code(s): S32.001A - Stable burst fracture of unspecified lumbar vertebra, initial encounter for closed fracture Status: Acute Assessment and Plan: Lumbar spine CT shows Acute burst fracture of L1, with 2 mm retropulsion. No other acute fracture or traumatic malalignment detected in the lumbar spine. Neurosurgery consult: Lumbosacral corset recommended IR pain management referral if pain continues. 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 Patient denies any chest pain. EKG showed AFib with RVR with nonspecific ST-T changes. Patient already is anticoagulated. Echo ordered (10) Shock: Code(s): R57.9 - Shock, unspecified Status: Resolved Assessment and Plan: bp is better now Pt had GB drain put in (11) Sepsis: Code(s): A41.9 - Sepsis, unspecified organism Status: Resolved Assessment and Plan: Likely secondary to pneumonia and UTI and possible cholecystitis Blood cultures urine cultures wound cultures pending Empiric Zosyn Subjective Date/time seen: 12/23/22 15:23 Interval history: feeling well. no new complaints. Sitting up in the chair today back is better. Denies any shortness of breath or chest pain. Review of Systems Review of Systems: All systems reviewed & are unremarkable except as noted in HPI and below (HPI) Exam Narrative: General: Pt is alert awake and in no distress. Lungs/Chest: lungs are clear Cardiac: Tachycardic AFib rhythm. Normal S1 S2. No murmurs Circulation: Pedal pulses are intact and symmetri
[2022-12-23 16:44] LABS: Glucose Point of Care 163 mg/dl (65-105)
[2022-12-23] MEDS: METOPROLOL SUCCINATE EXT REL 50 MG TABCR PO (18:31)
[2022-12-23] MEDS: WARFARIN (*PBKC) 3 MG TABLET PO (18:33)
[2022-12-23 19:59] LABS: Glucose Point of Care 129 mg/dl (65-105)
[2022-12-23] MEDS: ATORVASTATIN 40 MG TABLET PO (21:08)
[2022-12-24] VITALS (21 sets, daily range): BP systolic 112–132; BP diastolic 61–81; PULSE 67–112; RESP 16–20; TEMP 35.9–37.1; O2SAT 91–97
[2022-12-24 05:01] LABS: Hematocrit 36.2 % (37.0-47.0); Hemoglobin 11.2 g/dL (12.0-15.0); Mean Corpuscular HGB Conc 30.9 g/dl (32-36); Mean Corpuscular Hemoglobin 26.7 pg (26-34); Mean Corpuscular Volume 86.4 fl (80-100); Mean Platelet Volume 9.4 fl (7.4-10.4); Platelet Count Result 226 k/mm3 (150-375); Red Blood Count 4.19 M/mm3 (4.2-5.4); Red Cell Distribution Width 15.8 % (11.5-14.5); White Blood Count 9.3 K/mm3 (4.5-10.0)
[2022-12-24 05:10] LABS: INR 1.2; Prothrombin Time 16.4 Seconds (11.1-14.7)
[2022-12-24 05:16] LABS: Alanine Aminotransferase 20 U/L (6-35); Albumin Level 3.4 g/dL (3.5-5.1); Alkaline Phosphatase 59 U/L (38-126); Anion Gap 4 mmol/L (8-16); Aspartate Amino Transferase 24 U/L (14-36); Bilirubin,Total 0.8 mg/dL (0.2-1.3); Blood Urea Nitrogen 19 mg/dL (7-17); Calcium 8.4 mg/dL (8.4-10.2); Carbon Dioxide 30 mmol/L (22-30); Chloride 100 mmol/L (98-107); Estimated CRCL calculation 35 ml/min; Estimated Glomerular Filt Rate 60; Glucose 108 mg/dL (65-110); Magnesium 2.2 mg/dL (1.6-2.3); Potassium 4.6 mmol/L (3.4-5.0); Sodium 134 mmol/L (137-145)
[2022-12-24] MEDS: PIPERACILLIN/TAZ 2.25G/NS 50ML 2.25 GM/50 ML BAG IVPB ×4 (05:31→23:28)
[2022-12-24] MEDS: cilostazoL 50 MG TABLET PO ×2 (05:31→20:40)
[2022-12-24] MEDS: CENTRAL LINE FLUSH 10 ML IV PUSH ×3 (05:32→20:45)
[2022-12-24 07:54] LABS: Glucose Point of Care 121 mg/dl (65-105)
[2022-12-24] MEDS: IPRATROPIUM BR 0.02% INH SOLN 0.5 MG/2.5 ML VIAL INHALATION ×3 (08:31→21:03)
[2022-12-24] MEDS: LEVALBUTEROL NEB 1.25 MG/3 ML 0.63 MG INHALATION ×3 (08:31→21:03)
--- NOTE | 2022-12-24 10:07 | PM.PNGS ---
Progress Note: A&P Assessment and Plan (1) Cholecystitis: Code(s): K81.9 - Cholecystitis, unspecified Status: Acute Assessment and Plan: doing well s/p perc mahogany, exam benign, cont low fat diet, will need interval cholangiogram in a few wks prior to tube removal and possible interval cholecystectomy Subjective Subjective Date/Time Seen: 12/24/22 10:07 Interval history: no acute issues, chris low fat diet, no pain Review of Systems Review of Systems: All systems reviewed & are unremarkable except as noted in HPI and below Exam Const: General: cooperative, comfortable, no acute distress and ill appearing Resp: Auscultation: diminished lung sounds Cardio: Rate: regular rate Rhythm: regular rhythm GI: Inspection: normal to inspection and non-distended GI Palp: No abdominal tenderness and Yes Soft to palpation Other: mahogany tube - bilious drainage Objective Data Vital Signs Vital Signs: Vital Signs - 24 hr 12/23/22 10:39 12/23/22 12:00 12/23/22 13:20 Temperature 37.0 C Pulse Rate 109 H 111 H 114 H Respiratory Rate 18 16 Blood Pressure 156/83 H Pulse Oximetry 100 Pulse Oximetry [At Rest After Therapy Session] Pulse Oximetry [With Activity During Therapy Session] Oxygen Delivery Oxygen Flow Rate Fraction of Inspired Oxygen 12/23/22 13:36 12/23/22 12:00 12/23/22 14:00 Temperature Pulse Rate 111 H 107 H 126 H Respiratory Rate 16 Blood Pressure Pulse Oximetry Pulse Oximetry [At Rest After Therapy Session] Pulse Oximetry [With Activity During Therapy Session] Oxygen Delivery Oxygen Flow Rate Fraction of Inspired Oxygen 12/23/22 12:00 12/23/22 16:00 12/23/22 16:00 Temperature Pulse Rate 134 H Respiratory Rate 18 18 Blood Pressure Pulse Oximetry 95 95 Pulse Oximetry [At Rest After Therapy Session] Pulse Oximetry [With Activity During Therapy Session] Oxygen Delivery Nasal Cannula Nasal Cannula Oxygen Flow Rate 3 3 Fraction of Inspired Oxygen 12/23/22 16:12 12/23/22 16:00 12/23/22 18:31 Temperature 37.1 C Pulse Rate 112 H 123 H Respiratory Rate 16 Blood Pressure 113/55 L Pulse Oximetry 92 Pulse Oximetry [At Rest After Therapy Session] 85 L Pulse Oximetry [With Activity During Therapy Session] 95 Oxygen Delivery Nasal Cannula Oxygen Flow Rate 2 Fraction of Inspired Oxygen 12/23/22 18:00 12/23/22 20:00 12/23/22 20:00 Temperature Pulse Rate 115 H 100 104 H Respiratory Rate 20 Blood Pressure Pulse Oximetry 97 Pulse Oximetry [At Rest After Therapy Session] Pulse Oximetry [With Activity During Therapy Session] Oxygen Delivery Nasal Cannula Oxygen Flow Rate 4 Fraction of Inspired Oxygen 50 12/23/22 20:00 12/23/22 21:34 12/23/22 21:35 Temperature 36.4 C Pulse Rate 111 H 105 H Respiratory Rate 16 18 Blood Pressure 130/67 Pulse Oximetry 92 94 Pulse Oximetry [At Rest After Therapy Session] Pulse Oximetry [With Activity During Therapy Session] Oxygen Delivery Nasal Cannula Oxygen Flow Rate 3 Fraction of Inspired Oxygen 12/23/22 21:42 12/23/22 22:00 12/24/22 00:00 Temperature 36.4 C L Pulse Rate 106 H 97 92 Respiratory Rate 18 18 Blood Pressure 113/61 Pulse Oximetry 95 Pulse Oximetry [At Rest After Therapy Session] Pulse Oximetry [With Activity During Therapy Session] Oxygen Delivery Oxygen Flow Rate Fraction of Inspired Oxygen 12/24/22 00:00 12/24/22 00:00 12/24/22 02:00 Temperature Pulse Rate 92 92 89 Respiratory Rate 18 Blood Pressure Pulse Oximetry 95 Pulse Oximetry [At Rest After Therapy Session] Pulse Oximetry [With Activity During Therapy Session] Oxygen Delivery Nasal Cannula Oxygen Flow Rate 3 Fraction of Inspired Oxygen 50 12/24/22 04:00 12/24/22 04:00 12/24/22 04:00 Temperature 36.4 C Pulse Rate 89 89 88 Respiratory Rate 18 16 Blood Pressure 120/
[2022-12-24] MEDS: oxyCODONE/ACETAMINOPHEN (*CRX) 5-325 MG TABLET 1 TABLET PO (11:35)
[2022-12-24] MEDS: METOPROLOL SUCCINATE EXT REL 50 MG TABCR 150 MG PO (11:36)
[2022-12-24] MEDS: VERAPAMIL HCL ER 120 MG TABLET PO (11:36)
[2022-12-24] MEDS: lisinopriL 2.5 MG TABLET PO (11:36)
[2022-12-24] MEDS: CLOPIDOGREL BISULFATE 75 MG TABLET PO (11:36)
[2022-12-24] MEDS: PANTOPRAZOLE 40 MG TABLET PO (11:37)
[2022-12-24] MEDS: POTASSIUM CHLORIDE 20 MEQ PACKET (FOR LIQUID) PO ×2 (11:37→18:19)
[2022-12-24] MEDS: ISOSORBIDE MONONITRATE 30 MG TAB.ER.24H PO (11:38)
[2022-12-24 12:33] LABS: Glucose Point of Care 123 mg/dl (65-105)
--- NOTE | 2022-12-24 13:11 | PCPTNOTE ---
Attempted to see patient at this time however patient requests PT return later today. Patient states she just returned to bed after sitting up for 2 hours and would like to rest before participating in PT.
--- NOTE | 2022-12-24 14:51 | PC.NURSE ---
This patient, Terra Cartagena, was received from IMU on 12/24/22 at 1452. Patient/family oriented to unit policies and routines
--- NOTE | 2022-12-24 16:48 | PM.IMPN ---
Progress Note: A&P Assessment and Plan (1) Congestive heart failure: Code(s): I50.9 - Heart failure, unspecified Status: Acute Assessment and Plan: [place] [address]. Chest x-ray and CT scan shows interstitial edema. Patient has bibasilar crackles. Patient has mild bilateral edema Chest x-ray reviewed. Monitor . Not in overt heart failure (2) Atrial fibrillation: Code(s): I48.91 - Unspecified atrial fibrillation Status: Acute Assessment and Plan: Currently in sinus rhythm Restart coumadin INR still subtherapeutic Patient back into AFib with RVR received IV metoprolol 12/22. On metoprolol succinate 100 mg daily increased metoprolol to 150 mg daily. with better heart rate control today (3) DM2 (diabetes mellitus, type 2): Code(s): E11.9 - Type 2 diabetes mellitus without complications Status: Acute Assessment and Plan: Sliding scale insulin accuchecks (4) Cholecystitis: Code(s): K81.9 - Cholecystitis, unspecified Status: Acute Assessment and Plan: CT abdomen shows inflamed gallbladder concerning of acute cholecystitis Patient denies any abdominal pain and is not tender at this time Continue Zosyn Pt has a GB drain in situ. Biliary culture with Gram-positive cocci await identification (5) Pneumonia: Code(s): J18.9 - Pneumonia, unspecified organism Status: Acute Assessment and Plan: CT scan suggested aspiration pneumonia patient was started on Zosyn Blood cultures have been ordered (6) Burst fracture of lumbar vertebra: Qualifiers: Encounter type: initial encounter Fracture type: closed Qualified Code(s): S32.001A - Stable burst fracture of unspecified lumbar vertebra, initial encounter for closed fracture Code(s): S32.001A - Stable burst fracture of unspecified lumbar vertebra, initial encounter for closed fracture Status: Acute Assessment and Plan: Lumbar spine CT shows Acute burst fracture of L1, with 2 mm retropulsion. No other acute fracture or traumatic malalignment detected in the lumbar spine. Neurosurgery consult: Lumbosacral corset recommended IR pain management referral if pain continues. 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 Patient denies any chest pain. EKG showed AFib with RVR with nonspecific ST-T changes. Patient already is anticoagulated. Echo ordered (10) Shock: Code(s): R57.9 - Shock, unspecified Status: Resolved Assessment and Plan: bp is better now Pt had GB drain put in (11) Sepsis: Code(s): A41.9 - Sepsis, unspecified organism Status: Resolved Assessment and Plan: Likely secondary to pneumonia and UTI and possible cholecystitis Blood cultures urine cultures wound cultures pending Empiric Zosyn Subjective Date/time seen: 12/24/22 16:48 Interval history: No overnight events. Feeling well. Sitting up in the chair. Back is better. Denies any chest pain or shortness of breath. Review of Systems Review of Systems: All systems reviewed & are unremarkable except as noted in HPI and below (HPI) Exam Narrative: General: Pt is alert awake and in no distress. Lungs/Chest: lungs are clear Cardiac: Tachycardi
[2022-12-24 17:32] LABS: Glucose Point of Care 142 mg/dl (65-105)
[2022-12-24] MEDS: WARFARIN (*PBKC) 3 MG TABLET PO (18:18)
[2022-12-24] MEDS: ACETAMINOPHEN 325 MG TABLET 650 MG PO (20:39)
[2022-12-24] MEDS: ATORVASTATIN 40 MG TABLET PO (20:40)
[2022-12-24 21:19] LABS: Glucose Point of Care 126 mg/dl (65-105)
[2022-12-25] VITALS (22 sets, daily range): BP systolic 114–143; BP diastolic 62–75; PULSE 66–131; RESP 16–20; TEMP 36.4–36.6; O2SAT 85–99
[2022-12-25] MEDS: IPRATROPIUM BR 0.02% INH SOLN 0.5 MG/2.5 ML VIAL INHALATION ×3 (02:52→13:40)
[2022-12-25] MEDS: LEVALBUTEROL NEB 1.25 MG/3 ML 0.63 MG INHALATION ×3 (02:53→13:40)
[2022-12-25] MEDS: PIPERACILLIN/TAZ 2.25G/NS 50ML 2.25 GM/50 ML BAG IVPB ×2 (05:11→12:29)
[2022-12-25] MEDS: CENTRAL LINE FLUSH 20 ML IV PUSH (05:12)
[2022-12-25] MEDS: CENTRAL LINE FLUSH 10 ML IV PUSH (05:12)
[2022-12-25] MEDS: cilostazoL 50 MG TABLET PO (05:13)
[2022-12-25 05:33] LABS: Hematocrit 32.5 % (37.0-47.0); Hemoglobin 10.2 g/dL (12.0-15.0); Mean Corpuscular HGB Conc 31.4 g/dl (32-36); Mean Corpuscular Hemoglobin 27.9 pg (26-34); Mean Platelet Volume 9.6 fl (7.4-10.4); Platelet Count Result 184 k/mm3 (150-375); Red Blood Count 3.65 M/mm3 (4.2-5.4); White Blood Count 6.4 K/mm3 (4.5-10.0)
[2022-12-25 05:46] LABS: Alanine Aminotransferase 17 U/L (6-35); Albumin Level 2.9 g/dL (3.5-5.1); Alkaline Phosphatase 54 U/L (38-126); Anion Gap 2 mmol/L (8-16); Aspartate Amino Transferase 20 U/L (14-36); Bilirubin,Total 0.8 mg/dL (0.2-1.3); Blood Urea Nitrogen 20 mg/dL (7-17); Calcium 8.3 mg/dL (8.4-10.2); Carbon Dioxide 31 mmol/L (22-30); Chloride 102 mmol/L (98-107); Estimated CRCL calculation 32 ml/min; Estimated Glomerular Filt Rate 53; Glucose 101 mg/dL (65-110); Magnesium 1.8 mg/dL (1.6-2.3); Potassium 4.3 mmol/L (3.4-5.0); Sodium 135 mmol/L (137-145)
[2022-12-25 06:00] LABS: INR 1.3; Prothrombin Time 16.8 Seconds (11.1-14.7)
[2022-12-25] MEDS: ISOSORBIDE MONONITRATE 30 MG TAB.ER.24H PO (08:21)
[2022-12-25] MEDS: VERAPAMIL HCL ER 120 MG TABLET PO (08:22)
[2022-12-25] MEDS: CLOPIDOGREL BISULFATE 75 MG TABLET PO (08:23)
[2022-12-25] MEDS: METOPROLOL SUCCINATE EXT REL 50 MG TABCR 150 MG PO (08:23)
[2022-12-25] MEDS: PANTOPRAZOLE 40 MG TABLET PO (08:23)
[2022-12-25] MEDS: lisinopriL 2.5 MG TABLET PO (08:23)
[2022-12-25] MEDS: POTASSIUM CHLORIDE 20 MEQ PACKET (FOR LIQUID) PO (08:24)
[2022-12-25 08:31] LABS: Glucose Point of Care 108 mg/dl (65-105)
--- NOTE | 2022-12-25 10:58 | PM.DS ---
DS: Admitting Diagnosis Discharge Date December 25, 2022 Admitting Diagnosis cholecystitis DS: Discharge Diagnosis Discharge Diagnosis (1) Congestive heart failure: Code(s): I50.9 - Heart failure, unspecified Status: Acute Assessment and Plan: [place] [address]. Chest x-ray and CT scan shows interstitial edema. Patient has bibasilar crackles. Patient has mild bilateral edema Chest x-ray reviewed. Monitor . Not in overt heart failure (2) Atrial fibrillation: Code(s): I48.91 - Unspecified atrial fibrillation Status: Acute Assessment and Plan: Currently in sinus rhythm Restart coumadin INR still subtherapeutic Patient back into AFib with RVR received IV metoprolol 12/22. On metoprolol succinate 100 mg daily increased metoprolol to 150 mg daily. with better heart rate control today (3) DM2 (diabetes mellitus, type 2): Code(s): E11.9 - Type 2 diabetes mellitus without complications Status: Acute Assessment and Plan: Sliding scale insulin accuchecks (4) Cholecystitis: Code(s): K81.9 - Cholecystitis, unspecified Status: Acute Assessment and Plan: CT abdomen shows inflamed gallbladder concerning of acute cholecystitis Patient denies any abdominal pain and is not tender at this time Continue Zosyn Pt has a GB drain in situ. Biliary culture with Gram-positive cocci await identification (5) Pneumonia: Code(s): J18.9 - Pneumonia, unspecified organism Status: Acute Assessment and Plan: CT scan suggested aspiration pneumonia patient was started on Zosyn Blood cultures have been ordered (6) Burst fracture of lumbar vertebra: Qualifiers: Encounter type: initial encounter Fracture type: closed Qualified Code(s): S32.001A - Stable burst fracture of unspecified lumbar vertebra, initial encounter for closed fracture Code(s): S32.001A - Stable burst fracture of unspecified lumbar vertebra, initial encounter for closed fracture Status: Acute Assessment and Plan: Lumbar spine CT shows Acute burst fracture of L1, with 2 mm retropulsion. No other acute fracture or traumatic malalignment detected in the lumbar spine. Neurosurgery consult: Lumbosacral corset recommended IR pain management referral if pain continues. 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 Patient denies any chest pain. EKG showed AFib with RVR with nonspecific ST-T changes. Patient already is anticoagulated. Echo ordered (10) Shock: Code(s): R57.9 - Shock, unspecified Status: Resolved Assessment and Plan: bp is better now Pt had GB drain put in (11) Sepsis: Code(s): A41.9 - Sepsis, unspecified organism Status: Resolved Assessment and Plan: Likely secondary to pneumonia and UTI and possible cholecystitis Blood cultures urine cultures wound cultures pending Empiric Zosyn DS: Summary Hospital Course Hospital Course: patient was admitted for acute cholecystitis. History ofMultiple medical problems. patient was treated conservatively with cholecystostomy tube. Surgery was consulted and will need follow-up the patient. Antibiotics on discharge. Plan for cholecystectomy at some point. Time Spent with
[2022-12-25 12:08] LABS: Glucose Point of Care 135 mg/dl (65-105)
--- NOTE | 2022-12-25 13:28 | PM.PNGS ---
Progress Note: A&P Assessment and Plan (1) Cholecystitis: Code(s): K81.9 - Cholecystitis, unspecified Status: Acute Assessment and Plan: doing well, home c mahogany tube/drain care, abx, f/u 2 wks, will need cholanigogram thru tube in 4 wks or so Subjective Subjective Date/Time Seen: 12/25/22 13:28 Interval history: feels much better, no pain, chris low fat diet Review of Systems Review of Systems: All systems reviewed & are unremarkable except as noted in HPI and below Exam Const: General: cooperative, comfortable and no acute distress Resp: Auscultation: clear to auscultation bilaterally Cardio: Rate: regular rate Rhythm: regular rhythm GI: Inspection: normal to inspection and non-distended GI Palp: No abdominal tenderness and Yes Soft to palpation Other: mahogany tube - bilious drainage Objective Data Vital Signs Vital Signs: Vital Signs - 24 hr 12/24/22 14:00 12/24/22 15:42 12/24/22 16:12 Temperature Pulse Rate 99 95 97 Respiratory Rate 18 16 Blood Pressure Pulse Oximetry Oxygen Delivery Oxygen Flow Rate Fraction of Inspired Oxygen 12/24/22 16:30 12/24/22 16:00 12/24/22 21:05 Temperature 35.9 C L Pulse Rate 75 86 Respiratory Rate 18 Blood Pressure 112/64 Pulse Oximetry 97 91 Oxygen Delivery Nasal Cannula Oxygen Flow Rate 2 Fraction of Inspired Oxygen 12/24/22 21:06 12/24/22 20:00 12/24/22 20:00 Temperature Pulse Rate 88 86 Respiratory Rate 16 Blood Pressure Pulse Oximetry Oxygen Delivery Nasal Cannula Oxygen Flow Rate 2 Fraction of Inspired Oxygen 12/24/22 21:50 12/24/22 21:20 12/25/22 00:10 Temperature 36.4 C 36.4 C L Pulse Rate 67 85 92 Respiratory Rate 16 16 16 Blood Pressure 113/72 115/64 Pulse Oximetry 97 95 Oxygen Delivery Oxygen Flow Rate Fraction of Inspired Oxygen 12/25/22 00:00 12/25/22 02:51 12/25/22 04:00 Temperature Pulse Rate 88 84 94 Respiratory Rate 16 Blood Pressure Pulse Oximetry Oxygen Delivery Oxygen Flow Rate Fraction of Inspired Oxygen 12/25/22 03:05 12/25/22 06:23 12/25/22 07:20 Temperature 36.4 C L Pulse Rate 82 66 107 H Respiratory Rate 16 16 16 Blood Pressure 143/75 H Pulse Oximetry 99 Oxygen Delivery Oxygen Flow Rate Fraction of Inspired Oxygen 12/25/22 07:20 12/25/22 07:35 12/25/22 08:20 Temperature Pulse Rate 107 H 100 102 H Respiratory Rate 20 16 Blood Pressure 129/72 Pulse Oximetry 97 96 Oxygen Delivery Nasal Cannula Oxygen Flow Rate 2 Fraction of Inspired Oxygen 28 12/25/22 08:23 12/25/22 08:00 12/25/22 08:30 Temperature Pulse Rate 102 H 106 H Respiratory Rate Blood Pressure Pulse Oximetry 98 Oxygen Delivery Nasal Cannula Oxygen Flow Rate 1 Fraction of Inspired Oxygen 12/25/22 12:00 Temperature 36.6 C Pulse Rate 99 Respiratory Rate 18 Blood Pressure 115/69 Pulse Oximetry 96 Oxygen Delivery Oxygen Flow Rate Fraction of Inspired Oxygen Intake/Output Intake/Output: Intake & Output 12/22/22 12/23/22 12/24/22 12/25/22 23:59 23:59 23:59 23:59 Intake Total 711 668 8963 730 Output Total 1770 850 750 525 Balance -920 140 850 205 Meds/Results Medications: Active Medications Generic Name Dose Route Start Last Admin Trade Name Freq PRN Reason Stop Dose Admin Acetaminophen 650 mg 12/23/22 19:25 12/24/22 20:39 Acetaminophen 325 Mg Tablet PO 650 mg Q6H PRN Administration Mild Pain (1-3) or Fever Atorvastatin Calcium 40 mg 12/22/22 21:00 12/24/22 20:40 Atorvastatin 40 Mg Tablet PO 40 mg HS HENNA Administration Cilostazol 50 mg 12/22/22 16:30 12/25/22 05:13 Cilostazol 50 Mg Tablet PO 50 mg BIDAC HENNA Administration Clopidogrel Bisulfate 75 mg 12/23/22 09:00 12/25/22 08:23 Clopidogrel Bisulfate 75 Mg Tablet PO 75 mg QAM HENNA Administration Dextrose 12.5 gm 12/19/22 22:43 Dextros
--- NOTE | 2022-12-25 13:29 | PC.NURSE ---
Spoke with Dr. Cat regarding discharge. Provider OK with pt discharge with perc drain.
--- NOTE | 2022-12-25 14:05 | HOMEO2EVAL ---
Evaluation was performed at [facility] Home Oxygen Evaluation RC: Home Oxygen (O2) Evaluation Start: 12/25/22 12:04 Freq: ONCE Status: Active Protocol: RPE Activity Type Activity Date Activity User E-sign Co-sign Detail Recorded Client Recorded Date Recorded By Document 12/25/22 13:00 [email or web address] [email or web address] 12/25/22 14:04 DJO Document 12/25/22 13:05 [email or web address] [email or web address] 12/25/22 14:04 DJO Document 12/25/22 13:10 [email or web address] [email or web address] 12/25/22 14:04 DJO Document 12/25/22 13:15 [email or web address] [email or web address] 12/25/22 14:04 DJO Document 12/25/22 13:20 [email or web address] [email or web address] 12/25/22 14:04 DJO Document 12/25/22 13:35 [email or web address] [email or web address] 12/25/22 14:04 DJO 12/25/22 12/25/22 12/25/22 13:00 13:05 13:10 Home O2 Evaluation [Oxygen] -Test Phase Resting Exercise Exercise -Oxygen Delivery Room Air Room Air Nasal Cannula -Oxygen Flow Rate (L/min) 1 [Pulse Oximetry] -Pulse Oximetry (90-100 %) 93 85 L 86 L [Pulse Rate] -Pulse Rate (60-100 beats/min) 96 120 H 122 H [Evaluation] -Activity Tolerance [Charges] -Treatment Charges O2 Evaluation - Inpatient 12/25/22 12/25/22 12/25/22 13:15 13:20 13:35 Home O2 Evaluation [Oxygen] -Test Phase Exercise Exercise Resting -Oxygen Delivery Nasal Cannula Nasal Cannula Room Air -Oxygen Flow Rate (L/min) 2 3 [Pulse Oximetry] -Pulse Oximetry (90-100 %) 88 L 91 92 [Pulse Rate] -Pulse Rate (60-100 beats/min) 126 H 131 H 100 [Evaluation] -Activity Tolerance Poor [Charges] -Treatment Charges
--- NOTE | 2022-12-25 14:37 | PCRCNOTE ---
HOME O2 EVAL COMPLETE, 2L WITH ACTIVITY. SET UP WITH e[facility], PHONE NUMBER [phone].
[2022-12-25] MEDS: ACETAMINOPHEN 325 MG TABLET 650 MG PO (17:49)
== END 2022-12-25 18:45 | disposition home health service (06) | DRG 871 ==
LOC: ANHED 19:07 → ANH3MEDSUR 21:12 → ANHICU 22:50 → ANHIMU 12-22 12:12 → ANH2MED 12-24 14:37
PROVIDERS: Family Medicine; Internal Medicine; Nurse Practitioner; Nurse Practitioner Family; Admitting Provider Hospitalist; Emergency Provider Emergency Medicine; PCP Family Medicine; Visit Provider Chiropractor
DX: A41.9 Sepsis, unspecified organism (principal); I50.23 Acute on chronic systolic (congestive) heart failure; R65.21 Severe sepsis with septic shock; R57.0 Cardiogenic shock; J69.0 Pneumonitis due to inhalation of food and vomit; K81.0 Acute cholecystitis; S32.011A Stable burst fracture of first lumbar vertebra, initial encounter for closed fracture; I13.0 Hypertensive heart and chronic kidney disease with heart failure and stage 1 through stage 4 chronic kidney disease, or unspecified chronic kidney disease; E87.20 Acidosis, unspecified; N17.9 Acute kidney failure, unspecified; N39.0 Urinary tract infection, site not specified; E11.22 Type 2 diabetes mellitus with diabetic chronic kidney disease; E78.5 Hyperlipidemia, unspecified; E86.0 Dehydration; I69.392 Facial weakness following cerebral infarction; I25.10 Atherosclerotic heart disease of native coronary artery without angina pectoris; I48.91 Unspecified atrial fibrillation; M17.12 Unilateral primary osteoarthritis, left knee; N18.9 Chronic kidney disease, unspecified; Z20.822 Contact with and (suspected) exposure to COVID-19; W19.XXXA Unspecified fall, initial encounter; Z87.891 Personal history of nicotine dependence; Z98.49 Cataract extraction status, unspecified eye; Z96.1 Presence of intraocular lens; Z95.5 Presence of coronary angioplasty implant and graft; Z95.1 Presence of aortocoronary bypass graft; Z95.820 Peripheral vascular angioplasty status with implants and grafts; Z66 Do not resuscitate; Z79.01 Long term (current) use of anticoagulants
CPT/HCPCS: 36415; 36556; 36600; 47490; 70450; 71045; 71250; 72125; 72131; 74176; 76705; 76775; 80048; 80053; 81001; 82375; 82550; 82570; 82805; 82948; 83036; 83050; 83605; 83735; 83880; 84145; 84300; 84443; 84484; 85025; 85027; 85380; 85610; 85730; 87040; 87070; 87075; 87086; 87205; 87637; 93005; 93306; 93970; 94618; 94640; 96361; 96365; 96375; 97110; 97161; 97530; 99285; A9270; C1729; C1751; C9113; J0131; J0613; J0692; J1940; J2270; J2405; J2543; J3370; J3430; J3475; J3480; J7030; J7168

== ENCOUNTER 2022-12-29 15:59 | Outpatient (NON) | payer MEDICARE, SELFPAY ==
[2022-12-29 16:23] LABS: Prothrombin Time 20.9 Seconds (9.50-12.10)
== END 2022-12-29 16:00 | disposition home or self-care (01) ==
LOC: CHSLAB 16:03
PROVIDERS: Visit Provider Family Medicine
DX: Z79.01 Long term (current) use of anticoagulants (principal)
CPT/HCPCS: 36415; 85610

== ENCOUNTER 2023-01-12 17:21 | Outpatient (NON) | payer MEDICARE, SELFPAY ==
[2023-01-12 18:13] LABS: INR 10.9
== END 2023-01-12 17:22 | disposition home or self-care (01) ==
PROVIDERS: Visit Provider Family Medicine
DX: Z79.01 Long term (current) use of anticoagulants (principal)
CPT/HCPCS: 36415; 85610

== ENCOUNTER 2023-01-15 13:32 | Outpatient (NON) | payer MEDICARE, SELFPAY ==
[2023-01-15 13:51] LABS: INR 1.1; Prothrombin Time 11.7 Seconds (9.50-12.10)
== END 2023-01-15 13:33 | disposition home or self-care (01) ==
LOC: CHSLAB 13:33
PROVIDERS: Visit Provider Family Medicine
DX: S32.001D Stable burst fracture of unspecified lumbar vertebra, subsequent encounter for fracture with routine healing (principal); K81.9 Cholecystitis, unspecified; Z93.59 Other cystostomy status; J18.9 Pneumonia, unspecified organism
CPT/HCPCS: 36415; 85610

== ENCOUNTER 2023-01-18 12:54 | Outpatient (CLI) | payer MEDICARE, SELFPAY ==
--- NOTE | ~2023-01-18 | US_ITS ---
EXAMINATION:US venous doppler LE RT INDICATION:Right leg pain TECHNIQUE: Multiple grayscale, color flow and Doppler images of the right lower extremity deep venous systems were obtained and reviewed. COMPARISON:12/20/2022 FINDINGS: The common femoral, superficial femoral and popliteal veins demonstrate normal respiratory variation, augmentation and compressibility. Color flow is also seen within the posterior tibial, pe roneal, greater saphenous and profunda veins. IMPRESSION: 1: No lower extremity deep venous thrombosis. Reviewed, dictated and finalized at location []
[2023-01-18 13:35] LABS: INR 1.9
== END 2023-01-18 12:55 | disposition home or self-care (01) ==
PROVIDERS: PCP Family Medicine; Visit Provider Family Medicine
DX: M79.604 Pain in right leg (principal); Z79.01 Long term (current) use of anticoagulants
CPT/HCPCS: 36415; 85610; 93971

== ENCOUNTER 2023-01-22 10:25 | Outpatient (CLI) | payer MEDICARE, SELFPAY ==
--- NOTE | ~2023-01-22 | XR_ITS ---
EXAMINATION: XR catheter cholangiogram DATE: 01/22/2023 11:23 INDICATION: Acute cholecystitis. TECHNIQUE: I injected the percutaneous cholecystostomy tube with water-soluble contrast under fluoros copy. 9 images were obtained. Fluoroscopy exposure time was 0.4 minutes. COMPARISON: CT abdomen and pelvis 12/19/2022 FINDINGS: The percutaneous cholecystostomy tube is in expected position. Contrast passes to the commo n duct and duodenum. IMPRESSION: 1. Percutaneous cholecystostomy tube in expected position. 2. Patent cystic duct and common duct. Reviewed, dictated and finalized at location A.
== END 2023-01-22 10:26 | disposition home or self-care (01) ==
PROVIDERS: PCP Family Medicine; Visit Provider Surgery
DX: K81.0 Acute cholecystitis (principal)
CPT/HCPCS: 47531; Q9966

== ENCOUNTER 2023-01-22 14:57 | Emergency (ER) | payer MEDICARE, SELFPAY ==
[2023-01-22] VITALS (28 sets, daily range): BP systolic 67–117; BP diastolic 39–73; PULSE 87–112; RESP 14–24; TEMP 36.4–36.8; O2SAT 95–100
--- NOTE | ~2023-01-22 | US_ITS ---
US arterial duplex LE RT 01/22/2023 15:39 Indication: Cold right leg. History of aorto bifemoral bypass. Right superficial artery stent. Procedure: High-resolution duplex Doppler ultrasound of the right lower extremity Comparison: No prior studies for comparison. Findings: There is flow in the right popliteal artery distally with velocity of 14 cm/s. There is als o flow in the right posterior tibial artery measuring 9 cm/s. The right femoral artery is occluded. N o flow identified in the right anterior tibial artery. The right peroneal artery appears occluded. Impression: 1: Extensive occlusion of the right lower extremity arteries including the common femoral, superficia l femoral and peroneal arteries with possible occlusion of the right anterior tibial artery. Reviewed, dictated and finalized at location [] Impression: 1: Extensive occlusion of the right lower extremity arteries including the comm on femoral, superficial femoral and peroneal arteries with possible occlusion o f the right anterior tibial artery.
--- NOTE | ~2023-01-22 | XR_ITS ---
XR chest 1V portable 01/22/2023 16:09 Indication: Chronic with cough Procedure: AP portable chest Comparison: Comparison to multiple prior studies sequentially, with oldest reviewed study dated 12/22. Findings: Status post median sternotomy for CABG. Borderline heart size. There is atherosclerosis of the aorta. No focal air space disease, pulmonary edema, pleural effusion or suspected pneumothorax. T he lungs are hyperinflated which is consistent with, but not diagnostic of chronic obstructive pulmon derrick disease. Impression: 1: No acute cardiopulmonary disease. Reviewed, dictated and finalized at location [] Impression: 1: No acute cardiopulmonary disease.
--- NOTE | ~2023-01-22 | XR_ITS ---
XR abdomen/kub 1V 01/22/2023 16:08 INDICATION: Constipation TECHNIQUE: KUB COMPARISON: No prior studies for comparison. FINDINGS: Bowel gas pattern is normal. Moderate colonic fecal loading. There is no evidence of free a ir, mass, organomegaly, ascites or obstruction. No abnormal calculi are seen. The bones appear inta ct. Osteopenia. There is a right-sided percutaneous nephrostomy catheter. IMPRESSION: 1: No acute abdominal abnormality identified. Reviewed, dictated and finalized at location []
--- NOTE | 2023-01-22 15:04 | ED.LOWEXIN ---
HPI - Extremity Injury (Lower) General Chief Complaint: Extremity Injury, Lower Stated Complaint: right foot cold and discolored Time Seen by Provider: 01/22/23 15:04 Source: patient, family and EMS Mode of arrival: EMS History of Present Illness HPI Narrative: 82-year-old female, ex-smoker with a history of diabetes mellitus, dyslipidemia, burst fracture lumbar spine with chronic back pain, CAD status post cardiac stent in 2003 and CABG x3 in 2005, diastolic CHF, pulmonary hypertension with RV enlargement, atrial fibrillation on warfarin, pneumonia, peripheral vascular disease with aorto bi-iliac bypass, status post left carotid endarterectomy, bilateral femoral stents was admitted at [facility] from 12/19/2022 to 12/25/2022 for Septic shock secondary to cholecystitis status post cholecystostomy tube, aspiration pneumonia, CHF and elevated troponin. Post discharge the patient has been having -- ongoing drainage from the cholecystostomy tube. The patient went to [facility] today and had a cholangiogram which revealed patent cystic and common bile duct. -- Ongoing right lower extremity pain. she saw her primary care physician who ordered the venous Doppler which did not show any evidence of DVT. -- Constipation and fecal incontinence -- chronic low back pain from L1 burst fracture. Today the patient presents with -- worsening pain in the right lower extremity with coolness and bluish discoloration. -- On presentation to the ER the patient was noted to be hypotensive with a blood pressure of 67/41 for which the patient received 500 mL of normal saline with improvement of blood pressure. Related Data Home Medications Medication Instructions Recorded Confirmed atorvastatin 40 mg tablet 40 mg PO HS 12/19/22 01/22/23 cilostazol 50 mg tablet 50 mg PO [facility] 12/19/22 01/22/23 clopidogrel 75 mg tablet 75 mg PO DAILY 12/19/22 01/22/23 hydrochlorothiazide 25 mg tablet 25 mg PO DAILY 12/19/22 01/22/23 isosorbide mononitrate 30 mg 30 mg PO DAILY 12/19/22 01/22/23 tablet,extended release 24 hr lisinopril 2.5 mg tablet 2.5 mg PO DAILY 12/19/22 01/22/23 metoprolol succinate 100 mg 100 mg PO DAILY 12/19/22 01/22/23 tablet,extended release 24 hr omeprazole 40 mg capsule,delayed 40 mg PO DAILY 12/19/22 01/22/23 release sitagliptin phosphate 50 mg tablet 50 mg PO DAILY 12/19/22 01/22/23 (Januvia) verapamil 120 mg 24 hr 120 mg PO DAILY 12/19/22 01/22/23 capsule,extended release warfarin 3 mg tablet 3 mg PO DAILY 12/19/22 01/22/23 cholecalciferol (vitamin D3) 1,250 1,250 mcg PO WEEKLY 12/20/22 01/22/23 mcg (50,000 unit) capsule mirtazapine 15 mg tablet 15 mg PO DAILY 01/22/23 01/22/23 Allergies Allergy/AdvReac Type Severity Reaction Status Date / Time Sulfa (Sulfonamide Allergy Unknown Unknown Verified 01/22/23 15:22 Antibiotics) Review of Systems Review of Systems: All systems reviewed & are unremarkable except as noted in HPI and below Constitutional: Constitutional: Reports as per HPI and Reports no additional constitutional complaints Eyes: Eyes: Reports as per HPI and Reports no additional eye complaints ENT: Reports system reviewed and no additional complaints, except as documented and Reports as per HPI Cardiovascular: Cardiovascular: Reports as per HPI and Reports no additional cardiovascular complaints Respiratory: Respiratory: Reports as per HPI and Reports no additional respiratory complaints Comments: Chronic cough which is nonproductive. Gastrointestinal: Gastrointestinal: Reports as per HPI and Reports no additional gastrointestinal complaints Comments: Cholecystostomy tube puts out around 300 mL of by daily. No nausea/ vomiting /abdominal pain. Patient is constipated and is unable to defecate. Genitourinary: Genitourinary: Reports no additional female genitourinary complaints and Reports as per HPI Musculoskeletal: Musculoskeletal: Reports no additional musculo
[2023-01-22] MEDS: SODIUM CHLORIDE 0.9% IV 500 ML 999 ML IV CONT (15:10)
--- NOTE | 2023-01-22 15:49 | ECG_ITS ---
Measurements Intervals [place] Rate: 96 P: GA: 0 QRS: 91 QRSD: 93 T: -24 QT: 339 QTc: 429 Interpretive Statements ATRIAL FIBRILLATION BORDERLINE RIGHT AXIS DEVIATION [QRS AXIS > 90] INCOMPLETE RIGHT BUNDLE BRANCH BLOCK [90+ ms QRS DURATION, TERMINAL R IN V1/V2, 40+ ms S IN I/aVL/V4/V5/V6] NONSPECIFIC ST & T-WAVE ABNORMALITY ABNORMAL ECG COMPARED TO ECG 12/22/2022 22:11:18 INCOMPLETE RIGHT BUNDLE-BRANCH BLOCK NOW PRESENT T-WAVE ABNORMALITY NOW PRESENT Electronically Signed On 01-23-2023 9:11:18 CDT by Brian Augustin M.D.
--- NOTE | 2023-01-22 15:58 | PC.NURSE ---
DAUGHTER IS AT BEDSIDE. BEDSIDE US WAS COMPLETED, AWAITING RESULTS. BP HAS IMPROVED WITH FLUID BOLUS. PT IS AWAITING LABS AT THIS TIME. WILL CONTINUE TO MONITOR.
[2023-01-22 16:23] LABS: Basophils Absolute Auto 0.04 K/mm3 (0.00-0.10); Basophils Percent Auto 0.3 % (0.0-1.0); Eosinophils Absolute Auto 0.02 K/mm3 (0.02-0.50); Eosinophils Percent Auto 0.2 % (1.0-6.0); Hematocrit 37.6 % (35.0-42.0); Immature Granulocyte Absolute 0.14 K/mm3 (0.00-0.00); Immature Granulocyte Percent A 1.1 % (0.0-0.0); Mean Corpuscular HGB Conc 31.9 g/dL (32.0-36.0); Mean Corpuscular Hemoglobin 27.8 pg (27.0-31.0); Mean Platelet Volume 9.4 fl (9.2-11.8); Monocytes Absolute Auto 1.04 K/mm3 (0.10-0.90); Monocytes Percent Auto 8.4 % (2.0-11.0); Neutrophils Absolute Auto 9.5 K/mm3 (1.7-7.2); Platelet Count Result 240 K/mm3 (150-420); Red Blood Count 4.32 M/mm3 (4.20-5.40); Red Cell Distribution Width 16.5 % (11.6-14.4); White Blood Count 12.4 K/mm3 (4.8-10.8)
[2023-01-22] MEDS: ACETAMINOPHEN 500 MG TABLET 1000 MG PO (16:30)
--- NOTE | 2023-01-22 16:34 | PC.NURSE ---
PT REQUESTED TYLENOL FOR RT POSTERIOR CALF PAIN AND LOWER BACK PAIN. PT HAS CHRONIC BACK PAIN. MEDICATION WAS ADMINISTERED WITHOUT DIFFICULTY. DAUGHTER REMAINS AT BEDSIDE. VSS PER MONITOR. PT IS AWAITING RESULTS AT THIS TIME. WILL CONTINUE TO MONITOR.
[2023-01-22 16:49] LABS: Lactic Acid Reflex 1.9 mmol/L (0.4-2.0)
[2023-01-22 16:50] LABS: Alanine Aminotransferase 15 U/L (14-59); Alkaline Phosphatase 73 U/L (46-116); Anion Gap 12 mmol/L (8-16); Aspartate Amino Transferase 27 U/L (15-37); Bilirubin,Total 0.4 mg/dL (0.00-1.00); Blood Urea Nitrogen 83 mg/dL (7-18); Calcium 8.6 mg/dL (8.5-10.1); Carbon Dioxide 24 mmol/L (21-32); Chloride 95 mmol/L (98-108); Creatine Kinase 295 U/L (26-192); Estimated CRCL calculation 10 ml/min; Estimated Glomerular Filt Rate 15; Glucose 115 mg/dL (70-99); Lipase 87 U/L (16-77); NT Pro B Type Natriuretic Pept 6954 pg/mL (0-450); Osmolality Calculated 298 mOsm/kg (285-295); Partial Thromboplastin Time 51.8 SEC (23.90-30.70); Potassium 3.1 mmol/L (3.5-5.1); Prothrombin Time 49.9 Seconds (9.50-12.10); Sodium 131 mmol/L (136-145); Total Protein 6.7 g/dL (6.4-8.2); Troponin I 23.2 ng/L (0.00-60.4)
[2023-01-22 16:51] LABS: INR 5.1
[2023-01-22] MEDS: LACTATED RINGERS 500 ML 999 ML IV CONT (17:20)
--- NOTE | 2023-01-22 17:35 | PC.NURSE ---
PT AND DAUGHTER ARE NOTIFIED THE NEED FOR TRANSFER, PT AND DAUGHTER VOICE REQUEST TO GO TO [place]. RENEE NOTIFIED. PT, DAUGHTER, AND HER POA, WHICH IS HER OTHER DAUGHTER REPORT PT HAS A DNR, POA HAS A COPY AT HOME.
--- NOTE | 2023-01-22 18:17 | PC.NURSE ---
PT REPOSITIONED ONTO LEFT SIDE PER PT REQUEST AT THIS TIME. PT IS ABLE TO WIGGLE TOES ON RT FOOT, NO CHANGE IN PT STATUS. WILL CONTINUE TO MONITOR. ERP IS AWARE OF PT VS AT THIS TIME. HE IS SPEAKING WITH [facility] AT [facility].
[2023-01-22] MEDS: LACTATED RINGERS 1,000 ML 100 ML IV CONT (18:48)
[2023-01-22 19:09] LABS: Appearance Urine Clear (Clear); Bilirubin Urine Negative (Negative); Blood Urine 1+ (Negative); Color Urine Yellow (Yellow); Glucose Urine UA Negative (Negative); Ketones Urine Negative (Negative); Leukocyte Esterase Ur Negative LEU/UL (Negative); Nitrate Urine Negative (Negative); Protein Urine Negative (Negative); Urobilinogen Urine 0.2 mg/dL (0.2-1.0); pH Urine 5.5 (5.0-8.0)
[2023-01-22 19:15] LABS: Add Urine Microscopic? YES; Bacteria Urine 1+ /hpf; Squamous Epithelial Cell Urine None seen /hpf (Few); WBC Urine 0-3 /hpf (0-3)
--- NOTE | 2023-01-22 19:30 | PC.NURSE ---
Second IV established. ICU bed assignment received ICU- B-[address] [facility]. Pt updated.
--- NOTE | 2023-01-28 14:11 | PC.NURSE ---
final blood culture reports x2 reviewed. no growth after 5 days. no change in plan of care.
== END 2023-01-22 20:04 | disposition short-term general hospital (02) ==
PROVIDERS: Emergency Provider Internal Medicine Critical Care Medicine; PCP Family Medicine
DX: E11.51 Type 2 diabetes mellitus with diabetic peripheral angiopathy without gangrene (principal); I70.221 Atherosclerosis of native arteries of extremities with rest pain, right leg; N17.9 Acute kidney failure, unspecified; I95.9 Hypotension, unspecified; I25.10 Atherosclerotic heart disease of native coronary artery without angina pectoris; I13.0 Hypertensive heart and chronic kidney disease with heart failure and stage 1 through stage 4 chronic kidney disease, or unspecified chronic kidney disease; I50.9 Heart failure, unspecified; N18.9 Chronic kidney disease, unspecified; E11.22 Type 2 diabetes mellitus with diabetic chronic kidney disease; I48.91 Unspecified atrial fibrillation; E78.5 Hyperlipidemia, unspecified; Z87.891 Personal history of nicotine dependence
CPT/HCPCS: 36415; 71045; 74018; 80053; 81001; 82550; 83605; 83690; 83880; 84484; 85025; 85610; 85730; 87040; 93005; 93926; 96360; 96361; 99285; J7040; J7120

== ENCOUNTER 2023-02-18 06:25 | Outpatient (NON) | payer MEDICARE, SELFPAY ==
[2023-02-18 07:31] LABS: INR 10.3
== END 2023-02-18 06:26 | disposition home or self-care (01) ==
LOC: CHSLAB 06:26
PROVIDERS: Visit Provider Family Medicine
DX: Z79.01 Long term (current) use of anticoagulants (principal)
CPT/HCPCS: 36415; 85610

== ENCOUNTER 2023-03-11 09:43 | Inpatient (IN) | payer MEDICARE, SELFPAY ==
[2023-03-11] VITALS (13 sets, daily range): BP systolic 116–174; BP diastolic 62–97; PULSE 65–123; RESP 16–18; TEMP 35.7–36.7; O2SAT 75–97; BMI 16.9
--- NOTE | ~2023-03-11 | CT_ITS ---
Clinical Indication: Pleural effusion, shortness of breath CT Scan of the Chest with Contrast: Technique: Contiguous sections were acquired throughout the chest after intravenous administration of 75 cc of Omnipaque 350. Dose reduction technique was used on this scan by utilizing automated exposu re control and iterative reconstruction technique. The dose-length product (DLP) was 141.73 mGy-cm. COMPARISON: 12/19/2022 Findings: There is no evidence of any significant mediastinal, hilar or axillary lymphadenopathy. No large cent ral pulmonary embolus seen. There is no evidence of aortic dissection or aneurysm. There is marked, d iffuse atherosclerotic calcification of the thoracic and visualized abdominal aorta. Coronary artery calcifications are present. No pericardial effusion. Moderate right pleural effusion is present. Minimal left pleural effusion present. There is probable mild dependent atelectatic changes bilaterally. Images through the upper abdomen reveal no abnormalities.: Compression fracture present, with mild pr ogressive loss of height since 12/19/2022 Impression: Moderate right pleural effusion and minimal left pleural effusion, with associated mild dependent ate lectatic changes. Extensive atherosclerotic calcification of the thoracic and visualized abdominal aorta. L1 compression fracture, with mild progressive loss of height since 12/19/2022. Reviewed, dictated and finalized at location . Impression: Moderate right pleural effusion and minimal left pleural effusion, with associa jelena mild dependent atelectatic changes. Extensive atherosclerotic calcification of the thoracic and visualized abdomina l aorta. L1 compression fracture, with mild progressive loss of height since 12/19/2022.
--- NOTE | ~2023-03-11 | CT_ITS ---
EXAMINATION: CT abdomen pelvis wo con DATE: 03/12/2023 12:17 INDICATION: Generalized abdominal pain. TECHNIQUE: Computed tomography (CT) of the abdomen and pelvis was performed without intravenous contr ast. Automated exposure control and iterative reconstruction technique were employed. The dose-length product was 237.85 mGy-cm. COMPARISON: CT abdomen and pelvis 12/19/2022 FINDINGS: There are moderate-sized right and small left pleural effusions. There is septal thickening in the lungs, consistent with pulmonary edema. There is dependent atelectasis bilaterally. A calcifi ed right lung nodule is consistent with old granulomatous disease. There is biatrial enlargement of t he heart. There are coronary artery calcifications. No pericardial effusion. There is calcified ather osclerosis of the aorta and many of the other arteries. The liver is normal. Calcifications in the sp linh are consistent with old granulomatous disease. There is a gallstone in the gallbladder, which is normal in size. The pancreas and adrenal glands are normal. There is cortical thinning of the kidney s. There are cysts in the kidneys measuring up to 2.9 cm on the left. There is a 2.1 cm mass in left kidney measuring soft tissue attenuation. There is a 1.7 cm mass in right kidney measuring soft tissu e attenuation. There are persistent contrast nephrograms, consistent with decreased renal function. T here is an aortobifem bypass graft. There are stents in the superficial femoral arteries. There is an arterial graft superficial to left superficial femoral artery. There is diverticulosis of the colon without evidence of diverticulitis. There are no dilated loops of bowel. The appendix is normal. Ther e are no pathologically enlarged lymph nodes. There is a small volume of ascites. There is a burst fr acture of L1 with 2/5 loss of height and retropulsion of bone 4 mm into central spinal canal. There i s severe lumbar spondylosis. IMPRESSION: 1. Moderate-sized right and small left pleural effusions. 2. Mild pulmonary edema. 3. Bilateral kidney masses measuring up to 2.1 cm on the left. These findings may be hemorrhagic cyst s or less likely neoplasms. Abdomen MRI or CT without and with contrast is recommended. 4. Small volume of ascites. 5. L1 burst fracture, worsened from 12/19/2022. Reviewed, dictated and finalized at location B. IMPRESSION: 1. Moderate-sized right and small left pleural effusions. 2. Mild pulmonary edema. 3. Bilateral kidney masses measuring up to 2.1 cm on the left. These findings m ay be hemorrhagic cysts or less likely neoplasms. Abdomen MRI or CT without and with contrast is recommended. 4. Small volume of ascites. 5. L1 burst fracture, worsened from 12/19/2022.
--- NOTE | ~2023-03-11 | XR_ITS ---
EXAMINATION: XR chest 1V portable INDICATION: Shortness of breath TECHNIQUE: Portable AP chest at two five hours COMPARISON: 03/11/2023 FINDINGS: There is continued interval enlargement of a now moderate to large right-sided pleural effu maylin. There is associated atelectasis of the right lung. There is stable mild pulmonary edema. Cardio megaly is noted. There is no pneumothorax. IMPRESSION: 1. Increase in size of a now moderate to large right pleural effusion. 2. Stable mild pulmonary edema. 3. Cardiomegaly. Reviewed, dictated and finalized at location F.
--- NOTE | ~2023-03-11 | XR_ITS ---
EXAMINATION: XR chest 2V DATE: 03/11/2023 10:25 INDICATION: Shortness of breath and cough. TECHNIQUE: Frontal and lateral views of the chest were obtained on 3 radiographs. COMPARISON: Chest single view 01/22/2023, CT 12/19/2022 FINDINGS: There is a moderate-sized right pleural effusion. There is a diffuse interstitial pattern i n the lungs. There are airspace opacities at right lung base. No pneumothorax. Cardiomegaly is noted. Median sternotomy wires and mediastinal surgical clips are seen, likely from prior coronary artery b ypass grafting. There is a subacute burst fracture of L1, worsened from 12/19/2022. There are old heal ed left rib fractures. IMPRESSION: 1. Diffuse lung disease, likely mild pulmonary edema superimposed on emphysema. 2. Moderate-sized right pleural effusion. 3. Airspace opacities at right lung base, consistent with atelectasis versus pneumonia. 4. Cardiomegaly. Reviewed, dictated and finalized at location L. IMPRESSION: 1. Diffuse lung disease, likely mild pulmonary edema superimposed on emphysema. 2. Moderate-sized right pleural effusion. 3. Airspace opacities at right lung base, consistent with atelectasis versus pn eumonia. 4. Cardiomegaly.
--- NOTE | 2023-03-11 10:09 | ED.GENADULT ---
HPI - General Adult General Chief complaint: Recheck/Abnormal Lab/Rx Stated complaint: abnormal labs Time Seen by Provider: 03/11/23 09:50 Source: patient Mode of arrival: ambulatory Limitations: no limitations History of Present Illness HPI narrative: patient is an 82-year-old female who presents to the emergency room with abnormal blood work from the nursing facility. She had an elevated white blood count and an elevated left BNP and anemia. patient is chronically on 3 L of nasal cannula oxygen at the nursing facility (newly added). She has no current complaints of chest pain or shortness of breath. Onset (ago): day(s) (1) Radiation: non-radiation Relieving factors: none Exacerbating factors: none Associated symptoms: malaise and nausea/vomiting Treatments prior to arrival: none Related Data Home Medications Medication Instructions Recorded Confirmed atorvastatin 40 mg tablet 40 mg PO HS 12/19/22 03/11/23 cilostazol 50 mg tablet 50 mg PO QAM AND QHS 12/19/22 03/11/23 clopidogrel 75 mg tablet 75 mg PO DAILY 12/19/22 03/11/23 metoprolol succinate 100 mg 100 mg PO DAILY 12/19/22 03/11/23 tablet,extended release 24 hr omeprazole 40 mg capsule,delayed 40 mg PO DAILY 12/19/22 03/11/23 release sitagliptin phosphate 50 mg tablet 50 mg PO DAILY 12/19/22 03/11/23 (Januvia) verapamil 120 mg 24 hr 120 mg PO DAILY 12/19/22 03/11/23 capsule,extended release warfarin 3 mg tablet 1 mg PO DAILY 12/19/22 03/11/23 mirtazapine 15 mg tablet 15 mg PO DAILY 01/22/23 03/11/23 acetaminophen 300 mg-codeine 30 mg 1 tablet PO Q8H PRN Pain 03/11/23 03/11/23 tablet acetaminophen 325 mg tablet 650 mg PO Q6H PRN Pain 03/11/23 03/11/23 meclizine 25 mg tablet 25 mg PO TID PRN Nausea And 03/11/23 03/11/23 Vomiting nitroglycerin 0.4 mg sublingual 0.4 mg sublingual Q5M PRN Chest 03/11/23 03/11/23 tablet Pain sennosides 8.6 mg tablet (senna) 8.6 mg PO DAILY 03/11/23 03/11/23 Allergies Allergy/AdvReac Type Severity Reaction Status Date / Time Sulfa (Sulfonamide Allergy Unknown Unknown Verified 03/11/23 09:48 Antibiotics) levofloxacin [From Levaquin] Allergy Rash Verified 03/11/23 09:48 Review of Systems Review of Systems: All systems reviewed & are unremarkable except as noted in HPI and below Constitutional: Constitutional: Reports no additional constitutional complaints Eyes: Eyes: Reports no additional eye complaints ENT: Reports system reviewed and no additional complaints, except as documented Cardiovascular: Cardiovascular: Reports no additional cardiovascular complaints Respiratory: Respiratory: Reports no additional respiratory complaints Gastrointestinal: Gastrointestinal: Reports no additional gastrointestinal complaints Genitourinary: Genitourinary: Reports no additional female genitourinary complaints Musculoskeletal: Musculoskeletal: Reports no additional musculoskeletal complaints Integumentary/Breasts: Skin/Breast: Reports system reviewed and no additional complaints, except as docu Neurologic: Reports system reviewed and no additional complaints, except as documented Psychiatric: Psychiatric: Reports no additional psychiatric complaints Endocrine: Endocrine: Reports no additional endocrine complaints Hematologic/Lymphatic: Hematologic/Lymphatic: Reports no additional hematologic/lymphatic complaints Allergic/Immunologic: Allergic/Immunologic: Reports no additional allergic/immunologic complaints PMFSH Past Medical History Medical History Atrial fibrillation CAD (coronary artery disease) Cholecystitis Chronic kidney disease Chronic pain of left knee Congestive heart failure DM2 (diabetes mellitus, type 2) History of CVA (cerebrovascular accident) HTN (hypertension) with goal to be determined Hyperlipidemia L1 vertebral fracture Primary osteoarthritis of left knee Surgical History Surgical History (Reviewed 03/11/23 @ 10:11 by Jerald Stone
[2023-03-11 10:48] LABS: Hematocrit 33.7 % (35.0-42.0); Hemoglobin 9.9 g/dL (11.7-13.8); Mean Corpuscular HGB Conc 29.4 g/dL (32.0-36.0); Mean Corpuscular Hemoglobin 25.9 pg (27.0-31.0); Mean Corpuscular Volume 88.2 fL (78.0-102.0); Mean Platelet Volume 9.3 fl (9.2-11.8); Platelet Count Result 386 K/mm3 (150-420); Red Blood Count 3.82 M/mm3 (4.20-5.40); White Blood Count 21.8 K/mm3 (4.8-10.8)
[2023-03-11 10:55] LABS: Appearance Urine Clear (Clear); Bilirubin Urine Negative (Negative); Blood Urine Negative (Negative); Color Urine Yellow (Yellow); Glucose Urine UA Negative (Negative); Ketones Urine Negative (Negative); Leukocyte Esterase Ur Trace (Negative); Nitrate Urine Negative (Negative); Protein Urine Trace (Negative); Specific Grav Ur 1.025 (1.010-1.020); Urobilinogen Urine 0.2 mg/dL (0.2-1.0); pH Urine 5.5 (5.0-8.0)
[2023-03-11 11:01] LABS: Add Urine Microscopic? YES; Bacteria Urine 1+ /hpf; RBC Urine None seen /hpf (0-2); Squamous Epithelial Cell Urine Few /hpf (Few)
[2023-03-11 11:02] LABS: Band Neutrophils Percent 0 % (0-6); Basophils Percent Manual 0 % (0-1); Eosinophils Percent Manual 0 % (1-6); Lymphocytes Absolute Manual 0.87 K/mm3 (1.1-4.5); Lymphocytes Percent Manual 4 % (18-44); Monocytes Absolute Manual 0.43 K/mm3 (0.1-0.90); Monocytes Percent Manual 2 % (3-9); Neutrophils Absolute Manual 20.49 K/mm3 (1.7-7.2); Neutrophils Percent Manual 94 % (46-73); Platelet Estimate Adequate (Adequate); Total Cells Counted 100
[2023-03-11 11:03] LABS: Prothrombin Time 12.7 Seconds (9.64-11.0)
[2023-03-11 11:04] LABS: INR 1.2
[2023-03-11 11:08] LABS: Partial Thromboplastin Time 28.8 SEC (23.90-30.70)
[2023-03-11 11:11] LABS: Lactic Acid Reflex 2.6 mmol/L (0.4-2.0)
[2023-03-11] MEDS: FUROSEMIDE INJ 20 MG/2 ML VIAL IV PUSH (11:11)
[2023-03-11 11:17] LABS: Alanine Aminotransferase 13 U/L (14-59); Albumin Level 2.6 g/dL (3.4-5.0); Alkaline Phosphatase 91 U/L (46-116); Anion Gap 8 mmol/L (8-16); Aspartate Amino Transferase 14 U/L (15-37); Bilirubin,Total 0.5 mg/dL (0.00-1.00); Blood Urea Nitrogen 21 mg/dL (7-18); Calcium 8.9 mg/dL (8.5-10.1); Carbon Dioxide 29 mmol/L (21-32); Chloride 106 mmol/L (98-108); Estimated CRCL calculation 26 ml/min; Estimated Glomerular Filt Rate 49; Glucose 138 mg/dL (70-99); Osmolality Calculated 301 mOsm/kg (285-295); Potassium 3.2 mmol/L (3.5-5.1); Sodium 143 mmol/L (136-145); Total Protein 6.6 g/dL (6.4-8.2)
[2023-03-11 11:31] LABS: NT Pro B Type Natriuretic Pept 28988 pg/mL (0-450)
[2023-03-11] MEDS: ONDANSETRON HCL ODT 4 MG TABLET PO (11:39)
[2023-03-11] MEDS: AZITHROMYCIN 500 MG/NS 250 ML 500 MG/250 ML BAG 250 MG IVPB (11:43)
[2023-03-11] MEDS: POTASSIUM CHLORIDE 20 MEQ ER TABLET 40 MEQ PO (12:04)
[2023-03-11] MEDS: ACETAMINOPHEN 500 MG TABLET 1000 MG PO (13:10)
--- NOTE | 2023-03-11 13:27 | ECG_ITS ---
Measurements Intervals [place] Rate: 116 P: MO: 0 QRS: 104 QRSD: 94 T: 60 QT: 335 QTc: 467 Interpretive Statements ATRIAL FIBRILLATION WITH RAPID VENTRICULAR RESPONSE WITH ABERRANT CONDUCTION INCOMPLETE RIGHT BUNDLE BRANCH BLOCK [90+ ms QRS DURATION, TERMINAL R IN V1/V2, 40+ ms S IN I/aVL/V4/V5/V6] NONSPECIFIC ST & T-WAVE ABNORMALITY ABNORMAL ECG COMPARED TO ECG 01/22/2023 16:10:35 HEART RATE IS FASTER NO OTHER DIFFERENCE Electronically Signed On 03-12-2023 12:37:41 CDT by Claudio Orta M.D.
--- NOTE | 2023-03-11 13:35 | PM.IMHP ---
H&P: HPI History of Present Illness Date/Time: 03/11/23 13:35 Chief Complaint: Abnormal laboratories Narrative: Ms. Cartagena is an?82-year-old female, who is an ex-smoker with a known history of diabetes mellitus, dyslipidemia, burst fracture lumbar spine with chronic back pain, CAD status post cardiac stent in 2003 and CABG x3 in 2005, diastolic CHF, pulmonary hypertension with RV enlargement, atrial fibrillation on warfarin, pneumonia, peripheral vascular disease with aorto bi-iliac bypass, status post left carotid endarterectomy, and bilateral femoral stents. patient currently resides in an extended care facility and had been complaining to her daughter that she has been sick to her stomach for multiple days. Patient's daughter states she then called the patient's primary care provider and they stated they could have extra laboratories drawn. The laboratories returned today and patient was sent to the emergency room secondary to her significantly elevated white blood cell count. Patient states she had otherwise been feeling fine except for her upset stomach. Patient denies any abnormal shortness of breath, lightheadedness, dizziness, syncopal, or near syncopal episodes. Patient denies any chest pain, vomiting, dysuria, hematuria, frequency, or urgency. Patient denies any constipation or diarrhea at this time. Patient states she would not have come to the hospital except for she was told to because of her laboratories. Patient states she does have chronic edema to bilateral lower extremities with her right being greater than left secondary to a vascular procedure on her right leg. Patient's daughter states the patient does have a known history of congestive heart failure, although the type of heart failure is unknown. Upon evaluation emergency room patient was comfortable on oxygen at 3 L per nasal cannula, which she does wear at home. Patient's saturations have been within normal limits as long as she is wearing her oxygen. Patient states the only complaint she has at this time is back pain secondary to her chronic back pain and being on a stretcher. Patient did undergo chest x-ray that showed a moderate pleural effusion which is new from chest x-ray that was taken in January of this year. A CT scan of the chest was performed which also showed moderate pleural effusion. Patient states she also recently had a cholecystostomy tube that has been removed by a a general surgeon at [facility]. patient states she has had no issues since that time. Chest x-ray and CT scan also did show infiltrates and patient was given a dose of azithromycin as well ceftriaxone. Review of Systems Review of Systems: A 12 point review of systems was completed with patient all pertinent positive and negative per HPI the remainder are unremarkable. [facility] Past Medical History Medical History Atrial fibrillation CAD (coronary artery disease) Cholecystitis Chronic kidney disease Chronic pain of left knee Congestive heart failure DM2 (diabetes mellitus, type 2) History of CVA (cerebrovascular accident) HTN (hypertension) with goal to be determined Hyperlipidemia L1 vertebral fracture Primary osteoarthritis of left knee Surgical History Surgical History H/O carotid endarterectomy H/O cataract extraction With lens implant History of coronary artery stent placement S/P CABG x 3 S/P peripheral artery angioplasty with stent placement bilateral leg S/P tonsillectomy and adenoidectomy Family History Family History Father Hypertension Family history of arthritis Son Acute myocardial infarction Social History Social History Social History: the patient lives home alone and she is . 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 She had 3
--- NOTE | 2023-03-11 13:50 | ADMGEN ---
This patient, Terra Cartagena, was admitted to 2nd Floor Room 209-1. Patient/family oriented to hospital policies and general routines including ID bracelet, bed and alarms, visiting hours, pain management, procedures, bathroom and other care routines, personal items, smoking policy, room service/diet, and visiting hours. Information on how to activate the Rapid Response Team has been discussed. Patient/Family are encouraged to report perceived risks to care and to ask questions if they do not understand what they are told or what they should do.
[2023-03-11 13:55] LABS: Reflex Lactic Acid Yes or No Add Lactic
[2023-03-11] MEDS: ENOXAPARIN 60 MG/0.6 ML SYRINGE 50 MG SUB-Q (14:40)
[2023-03-11 16:51] LABS: Glucose Point of Care 182 mg/dl (65-105)
[2023-03-11] MEDS: METOPROLOL SUCCINATE EXT REL 50 MG TABCR 100 MG PO (17:40)
[2023-03-11] MEDS: VERAPAMIL HCL ER 120 MG TABLET PO (17:56)
[2023-03-11] MEDS: cilostazoL 50 MG TABLET PO (20:17)
[2023-03-11] MEDS: ATORVASTATIN 40 MG TABLET PO (20:17)
[2023-03-11] MEDS: ACETAMINOPHEN 325 MG TABLET 650 MG PO (20:17)
[2023-03-11 20:23] LABS: Glucose Point of Care 185 mg/dl (65-105)
[2023-03-12] VITALS (8 sets, daily range): BP systolic 72–146; BP diastolic 31–74; PULSE 58–101; RESP 10–18; TEMP 36–36.4; O2SAT 91–97
[2023-03-12 05:30] LABS: Hematocrit 32.8 % (35.0-42.0); Hemoglobin 9.7 g/dL (11.7-13.8); Mean Corpuscular HGB Conc 29.6 g/dL (32.0-36.0); Mean Corpuscular Volume 87.9 fL (78.0-102.0); Mean Platelet Volume 9.3 fl (9.2-11.8); Platelet Count Result 432 K/mm3 (150-420); Red Blood Count 3.73 M/mm3 (4.20-5.40); Red Cell Distribution Width 17.2 % (11.6-14.4)
[2023-03-12 05:41] LABS: White Blood Count 31.4 K/mm3 (4.8-10.8)
[2023-03-12 05:48] LABS: Band Neutrophils Percent 0 % (0-6); Basophils Percent Manual 0 % (0-1); Eosinophils Percent Manual 0 % (1-6); Lymphocytes Absolute Manual 1.25 K/mm3 (1.1-4.5); Lymphocytes Percent Manual 4 % (18-44); Monocytes Absolute Manual 0.62 K/mm3 (0.1-0.90); Monocytes Percent Manual 2 % (3-9); Neutrophils Absolute Manual 29.51 K/mm3 (1.7-7.2); Neutrophils Percent Manual 94 % (46-73); Platelet Estimate Adequate (Adequate)
[2023-03-12 05:52] LABS: Lactic Acid Reflex 2.5 mmol/L (0.4-2.0)
[2023-03-12 05:59] LABS: Alanine Aminotransferase 19 U/L (14-59); Albumin Level 2.5 g/dL (3.4-5.0); Alkaline Phosphatase 90 U/L (46-116); Anion Gap 10 mmol/L (8-16); Aspartate Amino Transferase 20 U/L (15-37); Bilirubin,Total 0.4 mg/dL (0.00-1.00); Blood Urea Nitrogen 25 mg/dL (7-18); Calcium 8.7 mg/dL (8.5-10.1); Carbon Dioxide 29 mmol/L (21-32); Chloride 105 mmol/L (98-108); Estimated CRCL calculation 23 ml/min; Estimated Glomerular Filt Rate 39; Glucose 121 mg/dL (70-99); Magnesium 1.1 mg/dL (1.8-2.4); Osmolality Calculated 303 mOsm/kg (285-295); Potassium 3.8 mmol/L (3.5-5.1); Sodium 144 mmol/L (136-145); Total Protein 6.4 g/dL (6.4-8.2)
[2023-03-12 07:38] LABS: Glucose Point of Care 111 mg/dl (65-105)
[2023-03-12 08:29] LABS: Reflex Lactic Acid Yes or No Add Lactic
[2023-03-12] MEDS: cilostazoL 50 MG TABLET PO (08:46)
[2023-03-12] MEDS: METOPROLOL SUCCINATE EXT REL 50 MG TABCR 100 MG PO (08:47)
[2023-03-12] MEDS: VERAPAMIL HCL ER 120 MG TABLET PO (08:48)
[2023-03-12] MEDS: SENNOSIDES 8.6 MG TABLET PO (08:49)
[2023-03-12] MEDS: PANTOPRAZOLE 40 MG TABLET PO (08:49)
[2023-03-12] MEDS: MIRTAZAPINE 15 MG TABLET PO (08:49)
[2023-03-12] MEDS: CLOPIDOGREL BISULFATE 75 MG TABLET PO (08:50)
[2023-03-12] MEDS: FUROSEMIDE INJ 20 MG/2 ML VIAL IV PUSH (08:51)
[2023-03-12] MEDS: ACETAMINOPHEN 325 MG TABLET 650 MG PO (08:51)
[2023-03-12 09:31] LABS: Lactic Acid 1.9 mmol/L (0.4-2.0)
[2023-03-12 11:36] LABS: Glucose Point of Care 131 mg/dl (65-105)
[2023-03-12] MEDS: MAGNESIUM SULF 4 GM/WATER100ML 4 GM/100 ML BAG IVPB (11:38)
--- NOTE | 2023-03-12 12:42 | PC.NURSE ---
Patient changed from observation status to inpatient status.
[2023-03-12] MEDS: AZITHROMYCIN 250 MG TABLET 500 MG PO (13:28)
[2023-03-12] MEDS: metroNIDAZOLE 250 MG TABLET 500 MG PO (13:30)
[2023-03-12] MEDS: SACCHAROMYCES BOULARDII 250 MG CAPSULE PO (13:30)
[2023-03-12] MEDS: ENOXAPARIN 60 MG/0.6 ML SYRINGE 50 MG SUB-Q (13:32)
[2023-03-12] MEDS: CEFEPIME 1 GM/NS 50 ML 1 GM/50 ML BAG IVPB (13:34)
[2023-03-12] MEDS: ACETAMINOPHEN/CODEINE (*CRX) 300/30 MG TABLET 1 TAB PO (14:20)
[2023-03-12] MEDS: VANCOMYCIN 1,250 MG/NS 250 ML 1,250 MG/250 ML BAG 166.67 MG IVPB (14:34)
--- NOTE | 2023-03-12 14:52 | PC.NURSE ---
Seed Collector called to room for patient not breathing well. [id number] Seed Collector observed patient gasping for air. Seed Collector advised charge nurse to call rapid response. Patient is DNR, but family in the room to direct care. Rapid response called. Fluids started. CXR obtained. Team continues to work on patient.
[2023-03-12 14:53] LABS: Glucose Point of Care 233 mg/dl (65-105)
--- NOTE | 2023-03-12 15:37 | PM.DDS ---
Discharge Summary Date and Time Date of : 03/12/23 Time of : 15:27 Provider Pronounced By: 2 RNs Probable Cause of Probable Cause of : Respiratory Arrest Summary Hospital Course: Patient Patient has sepsis at this time with Infectious Disease pharmcist assisting with antibiotic additions with the hospitalist; patient has hypotension and respiratory distress at this time; she is a DNR; family at bedside; hospitalist present; we made a few attempted maneuvers to have patient return to normal status using oxygen and IV fluids; chest x-ray shows worsening right pleural effusion but no pneumothorax; we gave her a dose of midodrine and continued IV fluids for supportive care; patient started to have apnea and became unresponsive and having bradycardia; family has asked this now to not do any further action such as rapid response or any further medications to allow her mother peacefully at this time; we have changed the scene for the patient to have no alarms and simple nasal cannula oxygen at this time for care and comfort measures only; see nursing notes for vital signs and further information; see hospitalist note for further information as well Additional Data Name of Provider Notified: Dr. Corona/ Nile GONZALEZP Time Provider Notified: 15:20 Was code activated?: No Provider Requests Autopsy: No Family Requests Autopsy: No Director Of S[employer] Notified: Yes Advance directives: Yes Hospice patient?: No
[2023-03-12] MEDS: MIDODRINE HCL 2.5 MG TABLET 10 MG PO (16:25)
--- NOTE | 2023-03-12 19:04 | PC.NURSE ---
1745 Ema Carrasquillo from [facility] here to transport remains.
[2023-03-13 13:00] VITALS: O2SAT 91
== END 2023-03-12 17:45 | disposition expired | DRG 871 ==
LOC: CHSED 11:03 → CHS2ND 13:39
PROVIDERS: Nurse Practitioner Adult Health; Admitting Provider Internal Medicine; Emergency Provider Emergency Medicine; PCP Family Medicine; Visit Provider Internal Medicine
DX: A41.9 Sepsis, unspecified organism (principal); J18.9 Pneumonia, unspecified organism; I13.0 Hypertensive heart and chronic kidney disease with heart failure and stage 1 through stage 4 chronic kidney disease, or unspecified chronic kidney disease; I48.20 Chronic atrial fibrillation, unspecified; J90 Pleural effusion, not elsewhere classified; I50.32 Chronic diastolic (congestive) heart failure; N18.9 Chronic kidney disease, unspecified; E11.51 Type 2 diabetes mellitus with diabetic peripheral angiopathy without gangrene; E11.22 Type 2 diabetes mellitus with diabetic chronic kidney disease; I27.20 Pulmonary hypertension, unspecified; I25.10 Atherosclerotic heart disease of native coronary artery without angina pectoris; E78.5 Hyperlipidemia, unspecified; M17.12 Unilateral primary osteoarthritis, left knee; R09.2 Respiratory arrest; S32.011D Stable burst fracture of first lumbar vertebra, subsequent encounter for fracture with routine healing; Z86.73 Personal history of transient ischemic attack (TIA), and cerebral infarction without residual deficits; Z95.5 Presence of coronary angioplasty implant and graft; Z95.820 Peripheral vascular angioplasty status with implants and grafts; Z95.1 Presence of aortocoronary bypass graft; Z79.01 Long term (current) use of anticoagulants; Z79.02 Long term (current) use of antithrombotics/antiplatelets
CPT/HCPCS: 36415; 71045; 71046; 71260; 74176; 80053; 81001; 82948; 83605; 83735; 83880; 85025; 85610; 85730; 87040; 87081; 87086; 93005; 96365; 96366; 96367; 96372; 96375; 96376; 99285; A9270; G0378; J0456; J0692; J0696; J1650; J1940; J3370; J3475; Q9967